=== PATIENT | female | born 1995 | race Caucasian/White ===

== ENCOUNTER 2021-02-22 12:20 | Inpatient (IN) ==
[2021-02-22] MEDS ORDERED: OXYTOCIN 30 UNITS/500 ML BAG IV PRN ×2 (12:39→19:24)
[2021-02-22] MEDS ORDERED: BUTORPHANOL TARTRATE 1 MG/ML VIAL IV ONE (12:42)
[2021-02-22] MEDS ORDERED: PENICILLIN G POTASSIUM 6 MU in DEXTROSE 5% 250 ML IV STA (12:43)
[2021-02-22] MEDS: LACTATED RINGER'S 1,000 ML IV PRN ×2 (12:44→15:28)
[2021-02-22 13:17] LABS: Hematocrit (blood only) 40.7 % (37-47); Hemoglobin 14.9 g/dL (12.0-16.0); Mean Corpuscular Hemoglobin 32.6 pg (25-34); Mean Corpuscular Hgb Conc 36.6 g/dL (32-36); Mean Corpuscular Volume 89.1 fL (80-100); Mean Platelet Volume 10.7 fL (7.4-10.4); Platelet Count 200 K/uL (130-400); RDW Coefficient of Variation 13.2 % (11.5-14.5); RDW Standard Deviation 43.1 fL (36.4-46.3); Red Blood Count 4.57 M/uL (4.2-5.4)
[2021-02-22] MEDS ORDERED: fentaNYL citrate 100 MCG/2 ML VIAL ONE (15:15)
[2021-02-22] MEDS ORDERED: BUPIVACAINE 0.25% 30 ML VIAL ONE (15:15)
[2021-02-22] MEDS ORDERED: SODIUM CHLORIDE 0.9% INJ 10 ML VIAL ONE (15:15)
[2021-02-22] MEDS ORDERED: ePHEDrine sulfate 50 MG/ML AMP ONE (15:15)
[2021-02-22] MEDS ORDERED: fentaNYL 2MCG/ML ROPIVACAINE 1.25MG/ML 100 ML BAG EPI ONE (15:16)
--- NOTE | 2021-02-22 15:17 | History & Physical Report ---
Date of Service February 22, 2021 Assessment & Plan (1) Normal labor: Plan: active labor. category one. Offered arom now to hopefully speed up and let baby descend vs. epidural. Patient got one dose of stadol when initially admitted and 5-6cm. Not a candidate for stadol now. After considering, she would like to proceed with epidural. Understands may not make her completely pain free at this late time of the labor. She feels like she is running out of energy and would prefer to try. Anticipate . Admission and Anticipated Discharge Date Admission Date: February 22, 2021 History of Present Illness Chief Complaint: contractions, labor Primary Care Provider: Sonal Aquino MD late entry secondary to patient care Patient is a 26yowf with iup at40 2/7 weeks who presents to labor and delivery secondary to labor. was seen in the office and noted to be 5/100/-1, intact. GBS positive, hypothyroid. Blood Type O Positive 07/06/20 Antibody Screen NEGATIVE 07/06/20 Hemoglobin 13.8 g/dL (12.0-16.0) 11/29/20 Hematocrit 40.3 % (37-47) 11/29/20 Mean Corpuscular Volume 87.2 fL (80-100) 07/06/20 Platelet Count 225 K/uL (130-400) 07/06/20 Rubella IgG Antibody Immune (Immune) 07/06/20 Rapid Plasma Reagin Nonreactive (Nonreactive) 07/06/20 Hepatitis B Surface Antigen Neg (Neg) 07/06/20 HIV (1&2) Ab and P24 Ag, 4th Gener Neg (Neg) 07/06/20 Glucose 1 Hour 50 gm Load 122 mg/dl (70-130) 11/29/20 OB Optional Labs: Chlamydia trachomatis RNA NOT DETECTED (NOT DETECTED) 07/06/20 Neisseria gonorrhoeae RNA NOT DETECTED (NOT DETECTED) 07/06/20 Thyroid Stimulating Hormone (TSH) 1.200 uIu/ml (0.300-4.500) 12/27/20 declined genetics/cf/sma/afp. Allergies Allergy/AdvReac Type Severity Reaction Status Date / Time No Known Allergies Allergy Verified 02/22/21 12:50 Home Medications Medication Instructions Recorded Confirmed Type levothyroxine 75 mcg capsule 75 mcg PO DAILY 06/27/20 02/22/21 History prenat.vits,tavo,[id number] 1 tab PO DAILY 06/27/20 02/22/21 History breast pump #1 ea 12/11/20 02/22/21 Rx breast pump #1 ea 12/11/20 02/22/21 Rx breast pump #1 ea 12/27/20 02/22/21 Rx Patient History Surgical History [place] teeth extracted Family History Mother Hypertension Dyslipidemia TIA (transient ischemic attack) Father Hypertension Dyslipidemia Social History Smoking Status: Never smoker Hx Alcohol Use: No Hx Substance Use: No Preferred Language: Citizen Of [place] Communication Ability: Effective Ed Physicians Required: No Beliefs That Will Affect Care: None marital status: marital status details: Zeferino [phone]) [phone] Current Living Situation: Spouse Current Living Situation Comment: lives with spouse, 2 dogs, 1 cat, spouse to change litter. current occupational status: employed current occupation: ER nurse @ [employer] Other Information That Helps Us Care for You: No Feels Safe at Home: Yes Safety Concerns: Feels Safe At This Time Assistive Devices: None OB History g1--present [employer] CR[employer] History noncontributory Physical Exam Constitutional: WD/WN, vitals as above Gastrointestinal (Abdomen): soft, gravid, nt Psychiatric: A+Ox3, euthymic affect Genitourinary: cx--8-9/100/-1 toco--q2 min efm--120 with mod variability, accels to 140s, no decels Results & Data ([facility]) Vital Signs (Past 12 Hours) Vital Signs Temp Pulse Resp BP 02/22/21 14:52 36.8 C 64 20 121/77 02/22/21 12:47 65 135/86 02/22/21 12:28 36.7 C 65 20 136/97 Code Status & VTE Plan VTE Prophylaxis Plan VTE Prophylaxis will be ordered: No Coding Level of Care Code None Diagnoses Normal labor O80; Z37.9
[2021-02-22] MEDS ORDERED: ePHEDrine sulfate 50 MG/ML AMP IV PRN (15:20)
[2021-02-22] MEDS ORDERED: diphenhydrAMINE 50 MG/ML VIAL IV PRN (15:20)
[2021-02-22] MEDS ORDERED: NALBUPHINE HCL INJ 10 MG/ML AMP IV PRN (15:20)
[2021-02-22] MEDS ORDERED: ONDANSETRON INJ 2 MG/ML 2 ML VIAL IV PRN (15:20)
[2021-02-22] MEDS ORDERED: NALOXONE HCL 1 MG in SODIUM CHLORIDE 0.9% 1000ML 1,000 ML IV PRN (15:20)
[2021-02-22] MEDS ORDERED: NALOXONE HCL 0.4 MG/1 ML VIAL/CARP IV PRN (15:20)
[2021-02-22] MEDS ORDERED: fentaNYL 2MCG/ML ROPIVACAINE 1.25MG/ML 100 ML BAG EPI PRN (15:20)
--- NOTE | 2021-02-22 15:20 | Anesthesiology Consultation ---
Date of Service February 22, 2021 Assessment & Plan ASA ASA2 Proposed Anesthesia Anesthesia Type: Labor Epidural Risk / Benefits Reviewed With: PT / POA / Parent / Guardian, Accepts Plan and Informed Consent Obtained History Height/Weight Height: 5 ft 3 in Weight: 60.781 kg Allergies Allergy/AdvReac Type Severity Reaction Status Date / Time No Known Allergies Allergy Verified 02/22/21 12:50 Medications Home Medications Medication Instructions Recorded Confirmed Last Taken levothyroxine 75 mcg capsule 75 mcg PO DAILY 06/27/20 02/22/21 02/21/21 06:00 prenat.vits,tavo,ptj-uqmc-rrczp 1 tab PO DAILY 06/27/20 02/22/21 02/21/21 12:00 breast pump #1 ea 12/11/20 02/22/21 Unknown breast pump #1 ea 12/11/20 02/22/21 Unknown breast pump #1 ea 12/27/20 02/22/21 Unknown Active Medications Generic Name Dose Route Start Last Admin Trade Name Freq PRN Reason Stop Dose Admin Lactated Ringer's 1,000 mls @ 125 mls/hr 02/22/21 12:39 02/22/21 14:25 Lr IV 02/24/21 12:38 125 mls/hr .Q8H PRN Infusion L&D Protocol Protocol Exercise / Class Metabolic Activity II 4-5 Yardwork/Stairs/Walk up hill Past Family History Family History Mother Hypertension Dyslipidemia TIA (transient ischemic attack) Father Hypertension Dyslipidemia Past Surgical History Surgical History [place] teeth extracted Past Anesthesia History No Hx of Anesthesia Complications and No Family Hx of Anesthesia Complications History of PONV No Hx of PONV and No Hx of Motion Sickness Social History Smoking Status: Never smoker Hx Alcohol Use: No Hx Substance Use: No Review of Systems denies fever/cough/ colds/ chest pain/ SOB/ SALLIE denies SALLIE Physical Exam Vital Signs Last Vital Signs Temp 36.8 C 02/22/21 14:52 Pulse 64 02/22/21 14:52 Resp 20 02/22/21 14:52 BP 121/77 02/22/21 14:52 ENMT Mouth: no TMJ abnormality and no dentition abnormality Thyromental Distance: > or= 3.5 Finger Breadths Mallampati Class: II Neck neck extension not limited Respiratory normal respiratory effort; no respiratory distress Auscultation: lungs clear to auscultation bilaterally Cardiovascular Rate/Rhythm: regular rate and regular rhythm Neurologic moves all extremities Psychiatric Orientation: alert and oriented x 3 Testing Laboratory Results 02/22/21 12:52
[2021-02-22] MEDS: PENICILLIN G POTASSIUM 3 MU in DEXTROSE 5% 100 ML IV PRN ×2 (15:53→16:52)
--- NOTE | 2021-02-22 18:10 | Labor Progress Brief Note ---
Date of Service February 22, 2021 Subjective comfortable with epidural. just starting to feel some rectal pressure. dose 2 of pcn on board. Assessment & Plan (1) Normal labor: Plan: labor down til constant pressure and then will start pushing. fetus overall category one. anticipate . Admission and Anticipated Discharge Date Admission Date: February 22, 2021 Physical Exam Physical Exam: cx-c/c/+1 arom--clear, bloody show toco--q2-3min efm--120s with mod variability, rare small variable and early. Results & Data ([facility]) Vital Signs (Past 12 Hours) Vital Signs Temp Pulse Resp BP Pulse Ox 02/22/21 18:06 72 92 02/22/21 18:01 65 110/75 100 02/22/21 18:00 20 02/22/21 17:58 63 86 L 02/22/21 17:55 63 100 02/22/21 17:50 62 95 02/22/21 17:49 58 L 85 L 02/22/21 17:46 58 L 116/71 02/22/21 17:45 58 L 100 02/22/21 17:40 66 100 02/22/21 17:35 73 100 02/22/21 17:31 67 124/75 02/22/21 17:30 65 20 100 02/22/21 17:25 72 100 02/22/21 17:20 65 100 02/22/21 17:16 65 112/66 02/22/21 17:15 65 100 02/22/21 17:11 68 100 02/22/21 17:05 76 100 02/22/21 17:02 69 109/63 02/22/21 17:00 70 20 99 02/22/21 16:56 85 92 02/22/21 16:50 74 100 02/22/21 16:46 68 102/61 100 02/22/21 16:42 73 89 L 02/22/21 16:41 68 100 02/22/21 16:36 72 100 02/22/21 16:31 73 100 02/22/21 16:30 78 20 105/59 L 02/22/21 16:28 75 88 L 02/22/21 16:26 70 100 02/22/21 16:25 67 108/59 L 02/22/21 16:21 68 100 02/22/21 16:20 68 107/65 02/22/21 16:16 76 100 02/22/21 16:15 75 115/57 L 02/22/21 16:10 70 18 100 02/22/21 16:09 75 107/58 L 02/22/21 16:06 72 100 02/22/21 16:05 71 108/56 L 02/22/21 16:00 82 20 106/60 100 02/22/21 15:58 91 H 121/75 87 L 02/22/21 15:56 77 121/69 02/22/21 15:55 82 100 02/22/21 15:54 81 115/66 02/22/21 15:52 80 131/78 02/22/21 15:51 95 H 20 92 02/22/21 15:50 83 129/75 02/22/21 15:48 88 124/71 02/22/21 15:46 71 134/82 02/22/21 15:45 73 100 02/22/21 15:44 78 134/81 02/22/21 15:42 82 20 136/87 02/22/21 15:40 70 100 02/22/21 15:35 70 100 02/22/21 15:31 99 H 100 02/22/21 15:26 75 98 02/22/21 15:22 63 117/68 02/22/21 15:21 97 H 100 02/22/21 14:52 36.8 C 64 20 121/77 02/22/21 12:47 65 135/86 02/22/21 12:28 36.7 C 65 20 136/97 Coding Level of Care Code None Diagnoses Normal labor O80; Z37.9
[2021-02-22] MEDS ORDERED: HYDROCORTISONE ACETATE 25 MG SUPP PR PRN (19:24)
[2021-02-22] MEDS ORDERED: bisacodyL 10 MG SUPP PR PRN (19:24)
[2021-02-22] MEDS ORDERED: SUPERCREAM 0.870% 15 GM JAR EXT PRN (19:24)
[2021-02-22] MEDS ORDERED: DIPHTHERIA/TETANUS/PERTUSSIS 0.5 ML SYR/VIAL IM ONE (19:24)
[2021-02-22] MEDS ORDERED: ACETAMINOPHEN 325 MG TAB PO PRN (19:24)
[2021-02-22] MEDS ORDERED: BENZOCAINE 20% AER SPR 82.5 GM CAN EXT PRN (19:24)
[2021-02-22] MEDS ORDERED: oxyCODONE/ACETAMINOPHEN 5mg/325mg TAB PO PRN (19:24)
--- NOTE | 2021-02-22 19:24 | Delivery Summary ---
Vaginal Delivery Summary Date of Service February 22, 2021 Vaginal Delivery Summary and 2nd Degree LAC Pre-operative Diagnosis: at 40 2/7 active labor srom Post-operative Diagnosis: same Procedure: second degree laceration and repair EBL: 300cc Anesthesia: local infiltration of lidocaine to the perineum Procedure: Patient presented from the office in active labor and srom. Patient progressed spontaneously to c/c/0 station. A lip of the cervix was easily reduced. The patient pushed for about 15 min to deliver a viable female in lop position. The nose and mouth were bulb suctioned on the perineum and the rest of the infant was then delivered without difficulty. The baby was vigorous. The nose and mouth were again bulb suctioned and the was placed in the maternal abdomen for drying and attention. Cord was clamped and c ut at one minute of life. Cord blood and segment obtained. Placenta delivered spontaneous, intact with a three vessel cord. Cervix/sulci/rectum were intact. A second degree perineal laceration was repaired in the normal standard fashion. Hemostasis obtained with dilute pitocin and fundal massage. Apgars were 8/9. Mother and baby doing well at the end of the delivery. [facility] [place] Vaginal Delivery Charge Delivery Type Details: and 2nd Degree LAC
--- NOTE | 2021-02-22 21:08 | Delivery Summary ---
Vaginal Delivery Summary Date of Service February 22, 2021 Vaginal Delivery Summary and 1st Degree LAC (right labial) Pre-operative Diagnosis: at 40 2/7 normal labor Post-operative Diagnosis: same Procedure: epidural arom first degree laceration and right labial laceration and repair EBL: 350cc Anesthesia: epidural Procedure: The patient arrived to labor and delivery from the office in active labor. She labored spontaneously and at 8-9cm got an epidural. The patient progressed to c/c/+1 station after laboring down . The patient pushed to deliver a viable female in claudia position. The nose and mouth were bulb suctioned on the perineum, there was a nuchal hand and the rest of the infant was then delivered without difficulty. The baby was vigorous. The nose and mouth were again bulb suctioned and the infant was placed in the maternal abdomen for drying and attention. Cord was clamped and cut at one minute of life. Cord blood and segment obtained. Placenta delivered spontaneous, intact with a three vessel cord. Cervix/sulci/rectum/perineum were intact. A first degree vaginal laceration and right labial laceration were repaired in the normal standard fashion. Hemostasis obtained with dilute pitocin and fundal massage. Apgars were 8/9. Mother and baby doing well at the end of the delivery. [facility] Vaginal Delivery Charge Delivery Type Details: and 1st Degree LAC (right labial)
[2021-02-22] MEDS: DOCUSATE SODIUM 100 MG CAP PO SCH (22:32)
[2021-02-23 06:57] LABS: Hematocrit (blood only) 38.6 % (37-47); Hemoglobin 13.8 g/dL (12.0-16.0)
--- NOTE | 2021-02-23 08:08 | Obstetrical Progress Note ---
Date of Service February 23, 2021 Assessment & Plan (1) Encounter for care and examination after delivery: Plan: 26yo PPD 1 s/p at 40 weeks 2 days complicated by 1st degree laceration -Continue routine care -Vitals reviewed- HDS, afebrile -GBS positive, adequately treated -Encourage ambulation, regular diet -Pain control with ibuprofen, acetaminophen, percocet PRN -Encourage -Hgb 13.8 -discharge likely late tonight versus tomorrow -f/u in 6 weeks with OB after discharge Admission and Anticipated Discharge Date Admission Date: February 22, 2021 Supervising Physician Co-Signing Physician Notes Resident Physician Supervision Note: I interviewed and examined the patient. Discussed with Dr. Boyd and agree with findings and plan as documented in the note. Any exceptions or clarifications are listed here: Doing well. Routine care. First time mom so probable d/c tomorrow. Documented By: Inna Barrios MD, FACOG Subjective Ambulation: yes Voiding: yes Passing Gas: not yet BM: not yet Diet Tolerance: regular Lochia: small Feeding Type: Current Pain Level(1-10): 2 Review of Systems Review of Systems: Denies fevers/chills. Denies dyspnea, cough. Denies chest pain. Denies breast pain or discharge. +mild burn at stitch site when urinating, resolving Denies nausea, vomiting. Physical Exam Physical Exam: General: Alert, oriented, no acute distress Cardiac: Regular rate and rhythm. No murmurs appreciated. Respiratory: Clear to auscultation, symmetric chest rise and fall. No wheezes or crackles. No increased work of breathing or accessory muscle use Abdomen: Soft, nontender. Fundus firm and palpable at 1 cm below umbilicus. No guarding or rebound. Extremities: Warm, dry. No lower extremity edema, erythema or swelling. Results & Data ([facility]) Vital Signs (Past 12 Hours) Vital Signs Temp Pulse Pulse Resp BP BP Pulse Ox 02/23/21 04:20 36.7 C 60 18 108/73 02/23/21 01:04 36.9 C 59 L 18 112/73 02/22/21 23:15 71 18 125/76 02/22/21 23:00 81 120/71 02/22/21 22:45 78 18 116/63 02/22/21 22:30 75 133/82 02/22/21 22:15 18 128/76 02/22/21 22:00 79 18 129/77 02/22/21 21:45 79 18 129/77 02/22/21 21:30 76 18 135/72 02/22/21 21:15 81 18 133/66 02/22/21 21:13 81 18 136/73 02/22/21 21:03 81 136/73 02/22/21 20:55 87 95 02/22/21 20:50 85 93 02/22/21 20:45 85 96 02/22/21 20:40 81 96 02/22/21 20:35 114 H 96 02/22/21 20:30 100 H 96 02/22/21 20:25 87 95 02/22/21 20:20 95 H 95 02/22/21 20:16 81 126/68 02/22/21 20:15 83 18 95 02/22/21 20:10 96 H 95 02/22/21 20:05 95 H 95 Resident Activity Tracking Resident Involvement: Resident Care Provided Care Provided: OB Delivery
[2021-02-23] MEDS: DOCUSATE SODIUM 100 MG CAP PO SCH ×2 (09:10→21:40)
[2021-02-23] MEDS: PRENATAL VITAMIN 1 TAB PO SCH (09:11)
[2021-02-23] MEDS: IBUPROFEN 600 MG TAB PO PRN ×2 (09:11→18:10)
--- NOTE | 2021-02-23 12:06 | Anesthesia Procedure Note ---
Date of Service February 23, 2021 Anesthesia Post Epidural Note Vital Signs Vital Signs: Temp Pulse Resp BP Pulse Ox 98.4 F 68 18 135/84 99 02/23/21 07:55 02/23/21 07:55 02/23/21 07:55 02/23/21 07:55 02/23/21 07:55 Pain Intensity Abdomen: Pain Intensity: 4 Notes Mental Status: alert / awake / arousable and participated in evaluation Nausea / Vomiting: adequately controlled Pain: adequately controlled Airway Patency, RR, SpO2: stable & adequate BP & HR: stable & adequate Hydration State: stable & adequate Neuraxial Anesthesia: was administered and sensory block is resolving Anesthetic Complications: no major complications apparent and Pt Satisfied with anesthetic care Epidural: Removed without complications and With tip intact
[2021-02-23] MEDS ORDERED: bisacodyL 5 MG TABEC PO SCH (20:00)
--- NOTE | 2021-02-24 08:30 | Obstetrical Progress Note ---
Date of Service February 24, 2021 Assessment & Plan (1) Encounter for care and examination after delivery: stable, dc home, f/u 6wk pp check, instructions reviewed. RH pos, RI, breast. Day #:: 2 Subjective Ambulation: ambulating normally Voiding: no voiding problems Diet Tolerance:: regular diet Lochia:: Small Feeding Type:: breast feeding denies pain issues. Constitutional: + as per Subjective / HPI Physical Exam Constitutional WD/WN, vitals as above Respiratory normal respiratory effort, lungs clear to auscultation Cardiovascular Rate/Rhythm: regular rate and regular rhythm Gastrointestinal (Abdomen) Inspection/Auscultation: abdomen normal to inspection Percussion/Palpation: abdomen soft fundus firm 2 cm below umbilicus Musculoskeletal nt calves no edema Neurologic grossly normal Psychiatric A+Ox3, euthymic affect
[2021-02-24] MEDS: IBUPROFEN 600 MG TAB PO PRN (08:57)
[2021-02-24] MEDS: PRENATAL VITAMIN 1 TAB PO SCH (08:57)
[2021-02-24] MEDS: DOCUSATE SODIUM 100 MG CAP PO SCH (08:57)
== END 2021-02-24 12:15 | disposition home or self-care (01) | DRG 807 ==
LOC: OPB 12:20 → 4S1 12:22 → 4S2 02-23 00:01

== ENCOUNTER 2023-03-12 12:25 | Inpatient (IN) ==
--- NOTE | 2023-03-12 13:21 | Emergency Department Note ---
ED Provider Note History of Present Illness Chief Complaint: Headache Stated Complaint: gestational hypertension Time Seen by Provider: 03/12/23 13:20 This is a 28-year-old female with a history of irritable bowel syndrome, hypothyroidism, who presents to the emergency department with a headache that started yesterday, not improving with Tylenol ibuprofen. Patient is 9 days . She was induced at 38 weeks in [place] due to IUGR. She was group B strep positive. Her amniotic fluid ruptured during the first cervical check the induction and she required Pitocin at 3 cm dilation. Delivered vaginally. She required bimanual evacuation due to persistent hemorrhage. Was diagnosed with hypertension during labor. Was subsequently discharged from the hospital, did not require additional intervention because her blood pressure normalized. Saw Brianda Snow REGULATORY COORDINATOR yesterday for blood pressure check and it was in the 140s systolic so they decided to bring her back in 1 week for a recheck. Patient developed a headache yesterday evening located on both sides of her head. Was constant last night, now comes and goes. She does not have any vision changes. Yesterday evening she had some right upper abdominal pain that lasted for about an hour but no nausea or vomiting. That pain has resolved. Patient has had a normal amount of bleeding. She has not had any chest pain, shortness of breath, fever, or chills. Home Medications Medication Instructions Recorded Confirmed Type levothyroxine 75 mcg capsule 75 mcg PO QAM 06/27/20 03/12/23 History prenat.vits,tavo,klc-kcyn-wuogs 1 tab PO DAILY 07/30/22 03/12/23 History breast pump #1 ea 10/23/22 02/25/23 Rx mesalamine 1.2 gram tablet,delayed See Rx Instructions .Route 01/26/23 03/12/23 Rx release .COMPLEX #360 tabs Allergies Allergy/AdvReac Type Severity Reaction Status Date / Time No Known Allergies Allergy Verified 02/25/23 10:53 Past Med/Surg History Medical History Ulcerative colitis History of COVID-19 diagnosed 08/2021--mild symptoms, no symptoms now IBS (irritable bowel syndrome) Hypothyroidism Surgical History History of colonoscopy [place] teeth extracted Family History Mother Dyslipidemia TIA (transient ischemic attack) Hypertension Father Dyslipidemia Hypertension Other No family history of adverse response to anesthesia Social History Smoking Status: Never smoker Second Hand Exposure: No; Do You Dip or Chew Tobacco: No; Tobacco Cessation Education Requested by Patient: No Hx Alcohol Use: No Hx Substance Use: No Preferred Language: Yi Communication Ability: Effective Living Skills Advisor Required: No Beliefs That Will Affect Care: None marital status: marital status details: Zeferino (28) [phone] Current Living Situation: Spouse and Family Current Living Situation Comment: lives with spouse and child, 2 dogs, 1 cat, spouse to change litter. current occupational status: employed current occupation: ER nurse @ [employer] Other Information That Helps Us Care for You: No Feels Safe at Home: Yes Safety Concerns: Feels Safe At This Time Assistive Devices: None Physical Exam Vital Signs Vital Signs - 24 hr 03/12/23 12:51 03/12/23 12:56 03/12/23 14:14 Temperature 97.9 F Temperature Source Temporal Artery Scan Pulse Rate 78 67 Respiratory Rate 20 Respiratory Effort / Characteristics Non-Labored Respiratory Depth Normal Blood Pressure 164/107 H 146/101 H Blood Pressure [Right Arm] 163/110 H Blood Pressure Mean 126 Blood Pressure Mean [Right Arm] 127 Pulse Oximetry 99 Oxygen Delivery Method Room Air Sepsis Recent Fever Within 48 Hours No Sepsis New/Unexplained Change in Mental Status No Sepsis Action Taken by Nursing No Action Required CONSTITUTIONAL: Well developed, well nourished, in no acute distress, pleasant. HEAD: Normocephalic, atraumatic. EYES: PERRL, conjunctivae normal, extraocular muscles intact. NECK: Full active range of motion. RESPIRATORY: Breathing unlabored and symmetric. Lungs clear to auscultation bilaterally. No wheeze, rales, or rhonchi. CARDIOVASCULAR: Regular rate and rhythm. No murmurs, rubs, or gallops. Radial pulses 2+ bilaterally. ABDOMEN: Normal bowel sounds. Soft, nontender, no peritonitis. No masses. No CVA tenderness bilaterally. MUSCULOSKELETAL: Moves all extremities at all joints without pain or difficulty. No cyanosis or edema. SKIN: [place], warm, dry. NEUROLOGIC: Awake, alert, oriented. Gaze is conjugate. Face symmetric, speech normal. Moves head and all four extremities spontaneously. Sensation and strength grossly intact. PSYCHIATRIC: Appropriate. Normal affect Course Administered Medications Magnesium Sulfate (Magnesium Sulfate / Wtr) 40 gm in 1,000 mls @ 50 mls/hr IV .Q20H YRN Stop: 04/11/23 13:59 Last Infusion: 03/12/23 18:59 Dose: 50 mls/hr Documented By: JUAN ANTONIO Co-signed By: LANI Admin: 03/12/23 15:12 Dose: 50 mls/hr Documented By: LAWSON Co-signed By: CHRISTINA Lactated Ringer's (Lr) 1,000 mls @ 125 mls/hr IV .Q8H YRN Stop: 04/11/23 16:59 Last Admin: 03/12/23 17:32 Dose: 75 mls/hr Documented By: JUAN ANTONIO Discontinued Medications Labetalol HCl (Labetalol Hcl Iv 5 Mg/Ml 20ml) 10 mg IV NOW STA Stop: 03/12/23 13:50 Last Admin: 03/12/23 14:20 Dose: Not Given Documented By: YUE Labetalol HCl (Labetalol Hcl Iv 5 Mg/Ml 20ml) 20 mg IV NOW STA Stop: 03/12/23 13:50 Last Admin: 03/12/23 14:14 Dose: 20 mg Documented By: YUE Co-signed By: DHARMSEH Magnesium Sulfate (Mag Sulfate 4gm Bolus From Bag) 4 gm IV ONE ONE Stop: 03/12/23 13:55 Last Admin: 03/12/23 14:35 Dose: 4 mg Documented By: YUE Co-signed By: TASHA Medical Decision Making Differential Diagnosis Preeclampsia, eclampsia, hypertension, thrombocytopenia, migraine headache, tension headache, pulmonary edema, proteinuria, sinus thrombosis, among other pathology Laboratory Data 03/12/23 13:50 03/12/23 13:50 Lab Results 03/12/23 03/12/23 Range/Units 13:45 13:50 WBC 7.36 (4.8-10.8) K/ul RBC 4.58 (4.20-5.40) M/uL Hgb 14.1 (12.0-16.0) g/dl Hct 40.2 (37.0-47.0) % MCV 87.8 (80.0-100.0) fL MCH 30.8 (25.0-34.0) pg MCHC 35.1 (32.0-36.0) g/dL RDW Std Deviation 40.3 (36.4-46.3) fL RDW Coeff of El 12.6 (11.5-14.5) % Plt Count 331 (130-400) K/uL MPV 8.9 L (9.4-12.4) fL Immature Gran % (Auto) 0.4 % Neut % (Auto) 60.5 % Lymph % (Auto) 29.8 % [place] % (Auto) 5.2 % Eos % (Auto) 3.4 % Baso % (Auto) 0.7 % Neut # (Auto) 4.46 (1.40-6.50) K/uL Lymph # (Auto) 2.19 (1.20-3.40) K/uL [place] # (Auto) 0.38 (0.11-0.59) K/uL Eos # (Auto) 0.25 (0.00-0.50) K/uL Baso # (Auto) 0.05 (0.00-0.20) K/uL Immature Gran # (Auto) 0.03 (0.01-0.20) K/uL Sodium 139 (136-145) mmol/L Potassium 3.8 (3.5-5.1) mmol/L Chloride 105 (98-107) mmol/L Carbon Dioxide 26 (21-32) mmol/L Anion Gap 8 (3-11) BUN 8 (6-23) mg/dl Creatinine 0.64 (0.6-1.2) mg/dl Est Cr Clr Drug Dosing 106.3 ml/min Est GFR ( Amer) 138.8 ml/min Est GFR (Non-Af Amer) 119.7 ml/min BUN/Creatinine Ratio 12.5 (10-20) Glucose 82 (70-99(Fasting)) mg/dl Calcium 8.9 (8.6-10.3) mg/dl Total Bilirubin 0.3 (0.2-1.0) mg/dl AST 23 (13-39) U/L ALT 19 (7-52) U/L Alkaline Phosphatase 79 (34-104) U/L Total Protein 7.1 (6.0-8.3) gm/dl Albumin 3.8 (3.4-5.0) gm/dl Globulin 3.3 (2.5-4.0) gm/dl Albumin/Globulin Ratio 1.2 (0.9-2) TSH 1.084 (0.300-4.500) uIu/ml Urine Color Yellow Urine Appearance Clear (Clear) Urine pH 6.5 (4.5-7.5) Ur Specific [place] 1.005 (1.000-1.030) Urine Protein Negative (Negative) Urine Glucose (UA) Negative (Negative) Urine Ketones Negative (Negative) Urine Blood 2+ H (Negative) Urine Nitrite Negative (Negative) Urine Bilirubin Negative (Negative) Urine Urobilinogen Negative (Negative) Ur Leukocyte Esterase Trace H (Negative) Urine WBC (Auto) 1-5 (0-5) /hpf Urine RBC (Auto) 0-4 (0-4) /hpf U Hyaline Cast (Auto) 0 (0-5) /lpf U Epithel Cells (Auto) 10-20 H (0-5) /lpf Urine Bacteria (Auto) Negative (Negative) Imaging Data Attestation: I personally reviewed and interpreted this imaging study as follows: ( I agree with the radiologist's interpretation) Radiologist's Impression: Chest X-Ray 03/12/23 13:23 SINGLE VIEW CHEST CLINICAL HISTORY: Right upper quadrant abdominal pain. 8 days . FINDINGS: An AP, portable, upright chest radiograph is obtained. No prior studies are available for comparison at the time of dictation. The cardiomediastinal silhouette is unremarkable. The lungs and pleural spaces are clear. No pneumothorax is seen. The bony thorax is grossly intact. IMPRESSION: No active disease in the chest. ACT 112: Negative or not required by law. Electronically signed by: Ancelmo Farris M.D. 03/12/2023 1:41 PM MDM Narrative This is a 28-year-old female day 9 presents to the emergency department with a persistent headache that began last evening. Developed hypertension during delivery which resolved. Had a blood pressure check yesterday which was in the 140s systolic. See above for further details. Patient well-appearing in no acute distress. Her blood pressure is repeatedly elevated in the 160/110 range checked multiple times by myself. She is not tachycardic. Remainder of vitals are normal. Her exam is unremarkable. No abdominal tenderness. An IV was inserted and labs and urine were obtained. An order was placed for continuous cardiac monitoring and at time of evaluation demonstrates a sinus rhythm in the 70s Labs: No leukocytosis or anemia. No thrombocytopenia. Electrolytes are normal. Renal function is normal. TSH normal. No proteinuria. Chest x-ray 1 view is negative for acute process While labs and urine were pending, I called and spoke with Dr. Eugene ([employer], [facility]) due to my concern for preeclampsia. She recommended 20 mg labetalol, 4 g magnesium bolus followed by 2 g every hour. She evaluated the patient and will admit her. Blood pressure improved to 146/101 after labetalol. Repeat blood pressure improved again to 136/91. Patient otherwise remained stable and is agreeable with admission. Impression Pre-eclampsia, Discharge Plan Visit Data Chief Complaint: Headache Stated Complaint: gestational hypertension ED Provider: Rosa Maria Brown ED Midlevel Provider: Otilio Pritchard Discharge Problem: Pre-eclampsia, Patient Disposition: Admitted As Inpatient Condition: Fair Discharge Instructions Interventions: ED Discharge Assessment Last Done: 03/12/23 16:57
--- NOTE | 2023-03-12 13:43 | XRay Report ---
SINGLE VIEW CHEST CLINICAL HISTORY: Right upper quadrant abdominal pain. 8 days . FINDINGS: An AP, portable, upright chest radiograph is obtained. No prior studies are available for c omparison at the time of dictation. The cardiomediastinal silhouette is unremarkable. The lungs and p leural spaces are clear. No pneumothorax is seen. The bony thorax is grossly intact. IMPRESSION: No active disease in the chest. ACT 112: Negative or not required by law. Electronically signed by: Ancelmo Farris M.D. 03/12/2023 1:41 PM
[2023-03-12] MEDS ORDERED: LABETALOL HCL IV 5 MG/ML 20ML IV STA ×2 (13:49)
[2023-03-12] MEDS ORDERED: MAG SULFATE 4GM BOLUS FROM BAG IV ONE (13:54)
--- NOTE | 2023-03-12 14:24 | OB/GYN Consultation ---
Date of Consultation March 12, 2023 Assessment & Plan (1) Pre-eclampsia, : 28 yo 9d pp presents w/ pp pre-eclampsia w/ severe features -pt evaluated while in the ER due to severe range BPs. Labs wnl. Discussed meets criteria for dx w/ elevated bps. She was recommended for IV labetalol 20 mg x 1 and received 4mg magnesium bolus sand 2g/hr afterward and brought to L&D. BPs remain normotensive on L&D -plan to be on mag x 24 hr (1430) with green in place. Will see how BPs do afterward. -ample time given to pt and for questions, answered to apparent satisfaction History of Present Illness Reason for Consultation: pre-eclampsia Requesting Physician: Otilio Pritchard History of Present Illness 28 yo approx 9d s/p and IOL for fgr c/b gestational HTN and hemorrhage requriing bimanual massage presented to ER due to known HTN and persistent ENG. Was dx w/ gHTN in labor and seen yesterday for BP check when it was 130/92 and asymptomatic. Last evening she began having ENG that did not resolve w/ tylenol or ibuprofen. She woke up this AM and noted it persisting. She contacted delivery provider and they recommended ER eval. In the ER, notes mild ENG but not as bad. Denies other s/s PET. BPs persistently severe range. Vaginal bleeding has been appropriate, minimal cramping Allergies Allergy/AdvReac Type Severity Reaction Status Date / Time No Known Allergies Allergy Verified 02/25/23 10:53 Home Medications Medication Instructions Recorded Confirmed Type levothyroxine 75 mcg capsule 75 mcg PO QAM 06/27/20 03/12/23 History prenat.vits,tavo,epo-xbjc-hwtgm 1 tab PO DAILY 07/30/22 03/12/23 History breast pump #1 ea 10/23/22 02/25/23 Rx mesalamine 1.2 gram tablet,delayed See Rx Instructions .Route 01/26/23 03/12/23 Rx release .COMPLEX #360 tabs Patient History Medical History (Updated 03/12/23 @ 14:58 by TAD Nolan) Ulcerative colitis History of COVID-19 diagnosed 08/2021--mild symptoms, no symptoms now IBS (irritable bowel syndrome) Hypothyroidism Surgical History History of colonoscopy [place] teeth extracted Family History Mother Dyslipidemia TIA (transient ischemic attack) Hypertension Father Dyslipidemia Hypertension Other No family history of adverse response to anesthesia Social History (Updated 07/30/22 @ 15:10 by Any Langford) Smoking Status: Never smoker Second Hand Exposure: No; Do You Dip or Chew Tobacco: No; Tobacco Cessation Education Requested by Patient: No Hx Alcohol Use: No Hx Substance Use: No Preferred Language: French Communication Ability: Effective Geospatial Scientist Required: No Beliefs That Will Affect Care: None marital status: marital status details: Zeferino (28) [phone] Current Living Situation: Spouse and Family Current Living Situation Comment: lives with spouse and child, 2 dogs, 1 cat, spouse to change litter. current occupational status: employed current occupation: ER nurse @ [employer] Other Information That Helps Us Care for You: No Feels Safe at Home: Yes Safety Concerns: Feels Safe At This Time Assistive Devices: None Physical Exam Respiratory: normal respiratory effort; no respiratory distress and no labored breathing Results & Data Vital Signs (Past 12 Hours) Vital Signs Temp Pulse Resp BP BP Pulse Ox O2 Del Method 03/12/23 14:14 67 146/101 H 03/12/23 12:56 163/110 H 03/12/23 12:51 97.9 F 78 20 164/107 H 99 Room Air Laboratory Results 03/12/23 03/12/23 Range/Units 13:50 13:45 WBC 7.36 (4.8-10.8) K/ul RBC 4.58 (4.20-5.40) M/uL Hgb 14.1 (12.0-16.0) g/dl Hct 40.2 (37.0-47.0) % MCV 87.8 (80.0-100.0) fL MCH 30.8 (25.0-34.0) pg MCHC 35.1 (32.0-36.0) g/dL RDW Std Deviation 40.3 (36.4-46.3) fL RDW Coeff of El 12.6 (11.5-14.5) % Plt Count 331 (130-400) K/uL MPV 8.9 L (9.4-12.4) fL Immature Gran % (Auto) 0.4 % Neut % (Auto) 60.5 % Lymph % (Auto) 29.8 % [place] % (Auto) 5.2 % Eos % (Auto) 3.4 % Baso % (Auto) 0.7 % Neut # (Auto) 4.46 (1.40-6.50) K/uL Lymph # (Auto) 2.19 (1.20-3.40) K/uL [place] # (Auto) 0.38 (0.11-0.59) K/uL Eos # (Auto) 0.25 (0.00-0.50) K/uL Baso # (Auto) 0.05 (0.00-0.20) K/uL Immature Gran # (Auto) 0.03 (0.01-0.20) K/uL Sodium 139 (136-145) mmol/L Potassium 3.8 (3.5-5.1) mmol/L Chloride 105 (98-107) mmol/L Carbon Dioxide 26 (21-32) mmol/L Anion Gap 8 (3-11) BUN 8 (6-23) mg/dl Creatinine 0.64 (0.6-1.2) mg/dl Est Cr Clr Drug Dosing 106.3 ml/min Est GFR ( Amer) 138.8 ml/min Est GFR (Non-Af Amer) 119.7 ml/min BUN/Creatinine Ratio 12.5 (10-20) Glucose 82 (70-99(Fasting)) mg/dl Calcium 8.9 (8.6-10.3) mg/dl Total Bilirubin 0.3 (0.2-1.0) mg/dl AST 23 (13-39) U/L ALT 19 (7-52) U/L Alkaline Phosphatase 79 (34-104) U/L Total Protein 7.1 (6.0-8.3) gm/dl Albumin 3.8 (3.4-5.0) gm/dl Globulin 3.3 (2.5-4.0) gm/dl Albumin/Globulin Ratio 1.2 (0.9-2) TSH 1.084 (0.300-4.500) uIu/ml Urine Color Yellow Urine Appearance Clear (Clear) Urine pH 6.5 (4.5-7.5) Ur Specific [place] 1.005 (1.000-1.030) Urine Protein Negative (Negative) Urine Glucose (UA) Negative (Negative) Urine Ketones Negative (Negative) Urine Blood 2+ H (Negative) Urine Nitrite Negative (Negative) Urine Bilirubin Negative (Negative) Urine Urobilinogen Negative (Negative) Ur Leukocyte Esterase Trace H (Negative) Urine WBC (Auto) 1-5 (0-5) /hpf Urine RBC (Auto) 0-4 (0-4) /hpf U Hyaline Cast (Auto) 0 (0-5) /lpf U Epithel Cells (Auto) 10-20 H (0-5) /lpf Urine Bacteria (Auto) Negative (Negative) PG Care Time/CCT Total # of Minutes Spent Total Time Spent with Patient: Total time spent is greater than 50% in coordination of care (as documented) at patient's floor/unit and/or counseling patient: Coding Level of Care Code None Diagnoses Pre-eclampsia, O14.95
[2023-03-12] MEDS ORDERED: MAGNESIUM SULFATE / WTR 40 GM/1,000 ML BAG IV SCH (14:30)
[2023-03-12 14:46] LABS: Albumin Globulin Ratio 1.2 (0.9-2); Albumin Level 3.8 gm/dl (3.4-5.0); BUN Creatinine Ratio 12.5 (10-20); Bilirubin,Total 0.3 mg/dl (0.2-1.0); Calcium 8.9 mg/dl (8.6-10.3); Creatinine Clr Calc Pharmacy 106.3 ml/min; Est GFR (African American) 138.8 ml/min; Est GFR (Non-African American) 119.7 ml/min; Globulin 3.3 gm/dl (2.5-4.0); Potassium 3.8 mmol/L (3.5-5.1); Total Protein 7.1 gm/dl (6.0-8.3)
[2023-03-12 14:50] LABS: Basophils # (auto) 0.05 K/uL (0.00-0.20); Basophils % (auto) 0.7 %; Eosinophils # (auto) 0.25 K/uL (0.00-0.50); Eosinophils % (auto) 3.4 %; Hematocrit (blood only) 40.2 % (37.0-47.0); Hemoglobin 14.1 g/dl (12.0-16.0); Immature Granulocytes # (auto) 0.03 K/uL (0.01-0.20); Immature Granulocytes % (auto) 0.4 %; Lymphocytes # (auto) 2.19 K/uL (1.20-3.40); Lymphocytes % (auto) 29.8 %; Mean Corpuscular Hemoglobin 30.8 pg (25.0-34.0); Mean Corpuscular Hgb Conc 35.1 g/dL (32.0-36.0); Mean Corpuscular Volume 87.8 fL (80.0-100.0); Mean Platelet Volume 8.9 fL (9.4-12.4); Monocytes # (auto) 0.38 K/uL (0.11-0.59); Monocytes % (auto) 5.2 %; Neutrophils # (auto) 4.46 K/uL (1.40-6.50); Neutrophils % (auto) 60.5 %; Platelet Count 331 K/uL (130-400); RDW Coefficient of Variation 12.6 % (11.5-14.5); RDW Standard Deviation 40.3 fL (36.4-46.3); Red Blood Count 4.58 M/uL (4.20-5.40); White Blood Count 7.36 K/ul (4.8-10.8)
[2023-03-12 14:50] LABS: Appearance Urine Clear (Clear); Bacteria Urine Automated Negative (Negative); Bilirubin Urine Negative (Negative); Blood Urine 2+ (Negative); Cast Urine Automated 0 /lpf (0-5); Color Urine Yellow; Glucose Urine UA Negative (Negative); Ketones Urine Negative (Negative); Leukocyte Esterase Urine Trace (Negative); Nitrite Urine Negative (Negative); Protein Urine Negative (Negative); RBC Urine Automated 0-4 /hpf (0-4); Specific Gravity Urine 1.005 (1.000-1.030); Urobilinogen Urine Negative (Negative); pH Urine 6.5 (4.5-7.5)
[2023-03-12 15:00] LABS: Thyroid Stimulating Hormone 1.084 uIu/ml (0.300-4.500)
[2023-03-12] MEDS: MAGNESIUM SULFATE / WTR 40 GM/1,000 ML BAG IV SCH (15:12)
[2023-03-12] MEDS: LACTATED RINGER'S 1,000 ML IV SCH (17:32)
--- OUTSIDE RECORDS SUMMARY | 2023-03-13 00:14 | External Medical Summary | Continuity of Care Document ---
Author Name Unknown Organization [place] [address] [address] Address [address] [place] [phone] Care Team Providers Care Composing Machine Operator Name Role Phone Sonal Aquino Primary Care Physician [phone] Encounter [facility] [id number] Date(s): 03/03/23 - 03/03/23 [place] [address] [address] [facility] Obstetrics and Gynecology [address] [place] [id number] [phone] Encounter Diagnosis 38 weeks gestation of (Discharge Diagnosis) - 03/02/23 Discharge Disposition: Home or Self Care Attending Physician: MD Taty, Kelsey Zamudio Referring Physician: MD Eugene Samantha L Allergies, Adverse Reactions, Alerts No Known Allergies Medications Colace 100 mg oral capsule Start: 03/05/23 8:44:00 EST, 1 cap, PO, bid Start Date: 03/05/23 Status: Ordered Dermoplast 20% topical spray Start: 03/05/23 8:45:00 EST, 1 appl, topical, As indicated, PRN: discomfort Start Date: 03/05/23 Status: Ordered levothyroxine 75 mcg (0.075 mg) oral capsule Start: 03/03/23 10:23:00 EST Start Date: 03/03/23 Status: Ordered mesalamine extended release Start: 03/03/23 10:22:00 EST Start Date: 03/03/23 Status: Ordered Motrin Start: 03/05/23 8:44:00 EST, 600 mg =, PO, q6h Start Date: 03/05/23 Status: Ordered Non-Formulary MED 03/05/23 8:45:00 EST, Maintenance Start Date: 03/05/23 Status: Ordered Multivitamins Start: 03/03/23 10:14:00 EST Start Date: 03/03/23 Status: Ordered Tucks Start: 03/05/23 8:45:00 EST, 1 appl, topical, As indicated, PRN: see order comments Start Date: 03/05/23 Status: Ordered Tylenol 325 mg oral tablet Start: 03/05/23 8:44:00 EST, 2 tab, PO, q6h Start Date: 03/05/23 Status: Ordered Problem List Condition Confirmation Course Effective Dates Status Health St atus Informant Hypothyroidism Confirmed Active Ulcerative colitis Confirmed Active Diagnosis Diagnosis Type Effective Dates Health Status Cl inical Service Informant 38 weeks gestation of Discharge Diagnosis 03/02/23 Social History Social History Type Response Smoking Status Never smoked cigaret allen Sex Female Patient Care team information Care Team Personnel Name: MD Miles, Sonal Chisholm Position: Referring DIRECT Member Role: Primary Care Provider Address: Address: [address] [place] [address] [place] Care Team Related Persons Name: EVELIN RODRIGUEZ Address: home [address] [place] [phone] Name: ZENOBIA RODRIGUEZ Address: home [address] [place] [phone]
--- OUTSIDE RECORDS SUMMARY | 2023-03-13 00:14 | External Medical Summary | Continuity of Care Document ---
Author Name Unknown Organization [facility] Address [address] [place] [address] [phone] Care Team Providers Care Staff Research Associate Name Role Phone Fredy Aquino Primary Care Physician [phone] [facility]counter [facility] [id number] Date(s): 03/03/23 - 03/05/[address] [id number] [phone] Encounter Diagnosis (Discharge Diagnosis) - 03/03/23 Discharge Disposition: Home or Self Care Attending Physician: Saran Gutierrez MD, Cindy Rangel Admitting Physician: Saran Gutierrez MD, Cindy Rangel Referring Physician: RAISA Poe Megan Allergies, Adverse Reactions, Alerts No Known Allergies Functional Status 03/05/23 Neurological Symptoms None ADLs Independent Facial Symmetry Symmetric Gait Steady Swallowing Difficulty None Level of Consciousness Neuro Alert, Active Hallucinations Present None History of Fall in Last 3 Months Wheeler N o Presence of Secondary Diagnosis Wheeler No Use of Ambulatory Aid Wheeler None/bedrest /nurse assist IV/Heparin Lock Fall Risk Wheeler No Gait/Transferring Fall Risk Wheeler Normal /bedrest/immobile Mental Status Fall Risk Wheeler Oriented t o own ability Wheeler Fall Risk Score 0 Wheeler Fall Risk No Risk Speech Pattern Clear Medications Colace 100 mg oral capsule Start: [...] PO, q6h Start Date: 03/05/23 Status: Ordered Mental Status 03/03/23 Communication Barrier Present No Primary Language Bangladeshi Problem List Condition Confirmation Course Effective Dates Status Health St atus Informant Hypothyroidism Confirmed Active Ulcerative colitis Confirmed Active Diagnosis Diagnosis Type Effective Dates Health Status Clini tavo Service Informant Discharge Diagnosis 03/03/23 Non-Specified Results Laboratory List Name Date Complete Blood Count (CBC w Platelets) 1 05/05/22 Fibrinogen 03/04/23 Partial Thromboplastin Time (PTT) Prothrombin Time w/ INR (PT/INR) 3 Protein/Creatinine Ratio, Urine (Urine P rotein/Creatinine Ratio) 03/03/23 Creatinine Level 03/03/23 ALT Level 03/03/23 AST Level 03/03/23 Glucose Meter (GLUCOSE METER) 03/03/23 Blood Type (ABO/Rh) (ABO/RH) 03/03/23 Blood Type/Antibody Screen ( for possible transfusion) (Type and Screen (for possible transfusion)) 03/03/23 Complete Blood Count (CBC w Platelets) 1 05/04/22 Treponemal Ab Screen 03/03/23 Most recent to oldest [Reference Range]: 1 2 ABO/Rh O POSITIVE (03/03/23 3:52 PM) O POSITIVE (03/03/23 3:40 PM) Antibody Scr NEGATIVE (03/03/23 3:40 PM) Expires at 0600AM on 03/06/2023 (03/03/23 3:40 PM) # Units 2 (03/03/23 3:40 PM) R Number NRQ (03/03/23 3:40 PM) eGFR CKD-EPI [>60 mL/min/1.7 3 m2] >90 mL/min/1.73 m2 (03/03/23 9:05 PM) Estimated CrCl 103.10 mL/min (03/03/23 9:43 PM) Treponemal Ab Screen [NR] NONREACTIVE (03/03/23 3:40 PM) Prot/Cret (u) NOT CALCULATED (03/03/23 9:05 PM) MPV [9.0-12.2 fL] 10.3 fL (03/04/23 5:09 AM) 10.1 fL (03/03/23 3:40 PM) RDW [11.5-14.2 %] 12.9 % (03/04/23 5:09 AM) 13.0 % (03/03/23 3:40 PM) B Comments Second specimen for ABRH confirmation requested from: L (03/03/23 3:40 PM) Component RED CELLS (03/03/23 3:40 PM) Protein (u) ran [<25 mg/dL] <4 mg/dL (03/03/23 9:05 PM) ALT [0-33 unit/L] 16 unit/L (03/03/23 9:05 PM) AST [0-32 unit/L] 26 unit/L (03/03/23 9:05 PM) Cret [0.60-1.00 mg/dL] 0.66 mg/dL (03/03/23 9:05 PM) Fibr [208-435 mg/dL] 402 mg/dL (03/04/23 5:09 AM) Gluc Meter [74-109 mg/dL] 88 mg/dL (03/03/23 8:20 PM) Hct [35-44 %] 37.0 % (03/04/23 5:09 AM) 39.8 % (03/03/23 3:40 PM) Hgb [11.7-15.0 g/dL] 13.1 g/dL (03/04/23 5:09 AM) 14.3 g/dL (03/03/23 3:40 PM) INR [0.9-1.1] 1.0 1 (03/04/23 5:09 AM) MCH [28-33 pg] 30.9 pg (03/04/23 5:09 AM) 30.7 pg (03/03/23 3:40 PM) MCHC [32-36 g/dL] 35.4 g/dL (03/04/23 5:09 AM) 35.9 g/dL (03/03/23 3:40 PM) MCV [81-96 fL] 87.3 fL (03/04/23 5:09 AM) 85.4 fL (03/03/23 3:40 PM) Plts [150-350 K/uL] 161 K/uL (03/04/23 5:09 AM) 185 K/uL (03/03/23 3:40 PM) PT [12.0-14.2 seconds] 12.8 seconds (03/04/23 5:09 AM) PTT [23-35 seconds] 23 seconds (03/04/23 5:09 AM) RBC [3.90-5.00 M/uL] 4.24 M/uL (03/04/23 5:09 AM) 4.66 M/uL (03/03/23 3:40 PM) Creat (u) 18.60 mg/dL 2 (03/03/23 9:05 PM) WBC [4.0-10.4 K/uL] 18.16 K/uL *HI* (03/04/23 5:09 AM) 9.18 K/uL (03/03/23 3:40 PM) 1Result Comment: Suggested therapeutic range for low-intensity Coumadin therapy for venous thromboembolism is INR 2.0-3.0 (ex: atrial fibrillation, history of TIA/stroke). For high risk patients, the suggested therapeutic range is INR 2.5-3.5 (ex: mechanical prosthetic valves). 2Result Comment: Reference Range for Random Urine Not Established. Vital Signs Most recent to oldest [Reference Range]: 1 2 3 Height 160.02 cm (03/03/23 4:24 PM) Patient Weight 59.7 kg (03/03/23 4:24 PM) Body Mass Index 23.31 kg/m2 (03/03/23 4:24 PM) Temperature [36.5-37.9 DegC] 36.5 DegC (03/05/23 1:21 PM) 36.5 DegC (03/05/23 5:00 AM) 36.0 DegC *LOW* (03/04/23 9:24 PM) Heart Rate 55 bpm (03/05/23 1:21 PM) 84 bpm (03/05/23 5:00 AM) 63 bpm (03/04/23 9:24 PM) Respiratory Rate 18 br/min (03/05/23 1:21 PM) 18 br/min (03/05/23 5:00 AM) 16 br/min (03/04/23 9:24 PM) Blood Pressure 123/90mmHg (03/05/23 4:10 PM) 121/88mmHg (03/05/23 1:21 PM) 118/76mmHg (03/05/23 5:00 AM) Mean Blood Pressure 101 mmHg (03/05/23 4:10 PM) 98 mmHg (03/05/23 1:21 PM) 86 mmHg (03/04/23 9:24 PM) Cuff Pulse Pressure 33 mmHg (03/05/23 4:10 PM) 33 mmHg (03/05/23 1:21 PM) 42 mmHg (03/05/23 5:00 AM) BP Location # 1 Left Arm (03/05/23 4:10 PM) Right Arm (03/05/23 1:21 PM) Right Arm (03/05/23 5:00 AM) Social History Social History Type Response Smoking Status Never smoked cigaret allen Sex Female Nikkis H&P * MD Mena, Lisy S: PERFORM MD Mena, Lisy S: PERFORM, SIGN MD Mena, Lisy S: SIGN, VERIFY MD Mena, Lisy S: VERIFY DO Haley, Evida: MODIFY, MODIFY Haley DO, Evida: MODIFY, MODIFY DO Haley, Evida: MODIFY Event Display: Anes H&P Authored Date: [id number] Patient: JUANJOSE RODRIGUEZ Age: 28 years Sex: Female : 1995 Associated Diagnoses: None Author: MD Mena, Lisy Hernandez Preoperative Information Pre-Operative Diagnosis: Gravid Uterus . Anesthiesia Preop Info: No Scheduled Surgeries Found. . History of Present Illness 28 yo, 61kg, at 38 weeks of gestation who presents for induction of labor. She has a PMHx of hypothyroidism and IBS. Current complicated by growth restriction. No h/o asthma, HTNor bleeding disorders, not on any anticoagulation. Anticoagulation: None prescribed Anesthetic History: No issues with anesthesia Prior airways: None on file Access: 20g PIV Pertinent labs: Most Recent Lab Results over the last 24 Hours: CBC: on 03/03/2023 15:40 14.3 9.2 185 39.8 Medical History Anesthesia History: Patient's history: Negative. Health Status Allergies: No active allergies have been recorded.. Medications: Medication List (Selected) Documented Medications Documented Multivitamins: levothyroxine 75 mcg (0.075 mg) oral capsule: mesalamine extended release: . Problem List: All Problems / SNOMED CT 069011464 / Confirmed Ulcerative colitis / SNOMED CT 238424761 / Confirmed Hypothyroidism / SNOMED CT 18917441 / Confirmed Resolved: / SNOMED CT 064804227. Histories Social History: Cigarrette Smoker? Other Tobacco Use: Alcohol: Recreational Drugs: . Physical Examination VS/Measurements: Vital Signs 03/03/2023 18:09 EST Temperature 36.7 DegC Temperature Route Oral Heart Rate 59 bpm Respiratory Rate 18 br/min Systolic Blood Pressure 126 mmHg Diastolic Blood Pressure 91 mmHg BP Location # 1 Right Arm BP Cuff Size Regular Mean Blood Pressure 101 mmHg Cuff Pulse Pressure 35 mmHg . Airway: Mallampati classification: II (soft palate, fauces, uvula visible). Mouth: Within normal limits, Teeth ( Within normal limits ). Respiratory: Lungs are clear to auscultation, Respirations are non-labored. Cardiovascular: Normal rate, Regular rhythm. Anesthesiologist Assessment and Plan Problems: No active cardiac conditions, No previous anesthetic complications, No a/w concerns. Risk of major adverse cardiac event (Revised Cardiac Risk Index): 0 = 0.4%. Disposition: No further testing or evaluation indicated preoperatively, may proceed with procedure as scheduled. ASA Classification: Class II. Anesthetic Plan: Anesthetic technique discussed: General anesthesia, Neuraxial. Induction discussed: Intravenously. Airway plan discussed: Oral endotracheal tube. Risks discussed: Nausea-vomiting, Headache, Sore throat, Dental injury, Eye injury, Allergic reaction, Serious complications, Nerve damage, Aspiration. Informed consent: Signed by patient. Special techniques and precautions discussed: Inadvertent dural puncture, Transfusion of blood or blood products. History, Physical Exam, Assessment and Plan Completed: 03/03/2023 18:17:00, DO De Leon Evida. Electronic Signature on File Electronically Reviewed/Signed by: Lisy San MD Author Signature Dt/Tm:03/04/2023 02:04 AM Department of Anesthesia RSK Consult * PAVAN Douglass Tiffany: PERFORM Event Display: Consult Authored Date: [id number] Name:JUANJOSE RODRIGUEZ Patient Number:[id number] :1995 Date of Service:03/04/2023 Visit information Type of Consult :initial_ Reason for consult: . Pain w/ Latch. Baby SGA and on the hypoglycemia protocol. Date & Time of Delivery: 03/04/23 at 0213 Maternal Age28 years old 2, Parity 2 Delivery Information vaginal Previous experience yes7 months. Latch sore in the beginning. gestational Age: 38.6 Weeks Infant Birthweight: 2580 g Assessment Interventions Age of Weaning Previous : 7 months Intervention: Assist with feeding position, Nipple care, Skin to Skin Infant First Feeding: BF Intrapartum Risk Factors at : Other: IOL, PPH - QBL 1184cc Account Leader Reason for Referral: Maternal questions, Sore nipples Maternal Risk Factors: induced hypertension, Other: UC, hypothyroidism Hardesty Risk Factors: Small for gestational age, Other: hypoglycemia protocol Supplies: Silverette Cup - breast size < C-cup Mother's Stated Concerns: Latch feels "pinchy" Prior Education/Support: Previous experience Assessment Audible Swallowing: Spontaneous and intermittent audible swallowing Breast Comfort, Left: No discomfort Breast Comfort, Right: No discomfort Breast Description, Left: Medium Breast Description, Right: Medium Hold Assistance: Minimal assistance Hold Type: Prone oblique, Laid back Infant Response: Remains latched Latch: Grasps breast, Tongue down, Lips flanged, Rhythmic sucking Length of Time Left: 15 Nipple Comfort, Left: Tender, Mild to moderate discomfort Nipple Comfort, Right: Tender, Mild to moderate discomfort Suck Assessment: Organized, Strong, Comfortable Type of Nipple, Left: Everted Type of Nipple, Right: Everted Monitoring Consult End Time: 03/04/23 09:56:00 Consult Start Time: 03/04/23 09:29:00 Account Leader Care Coordination: Other: Warm Line and Outpatient resources Account Leader Duration of Contact: 27 minute Account Leader Reason for Visit: First visit, Referral by provider Breast Feeding Audible Swallowing: Spontaneous and intermittent audible swallowing Latch: Grasps breast, Tongue down, Lips flanged, Rhythmic sucking Latch Assessment Audible Swallowing LATCH: 2 Spontaneous and intermittent < 24 hours old Comfort LATCH: 2 Soft, tender Hold LATCH: 1 Minimal assistance (Staff holds and mother takes over) Latch LATCH: 2 Grasps breast Tongue down Lips flanged Rhythmic sucking LATCH Score: 9 Type of Nipple LATCH: 2 Everted after stimulation Assessment: State:Quiet alert, cueing/rooting Tone:WNL Face:WNL, Symmetric Skin Color:WNL, Appropriate for ethnicity Head:WNL Output:2 voids Breast pump Acquisition_brand of pump_Spectra S1 and Medela Max Carlos. Both new through insurance. Education Provided: Benefits of breast milk Benefits of skin to skin Natural positioning [employer] Hand expression & kit Colostrum Lactogenesis II Baby sign language- Feeding cues & feeding frequency feeding behaviors days 1-4 of life Signs of an effective feeding White discharge education folder section p. 35 Warm line and outpatient resources Teaching reviewed with mother and she verbalized understanding of both verbal and written instructions. Impression:____ Experienced mother. Planning tobreastfeed this baby as well.She shares that the latch is sore, and she remembers experiencing latch difficulties with her first child. She was receptive to consult and review of education. She was open to 's assistance with repositioning techniques. With mom's permission I helped her un-swaddle baby and placeher skin to skin onher chest. Mom attempted feeding in a laid back natural positionand reported an improvement in comfort during the feeding. Se also shared that she feels like her baby looks more comfortable as well. Baby remained latched throughout consult. Ongoing assistance offered upon request. Recommendation/plan: * Follow up: -While inpt:request assistance/latch check PRN -with after discharge PRN -After discharge, call Warm-line with questions/concerns as needed @ [phone] ([phone]) .D/C Summary * MD Hernandez Fredrick: PERFORM Event Display: .D/C Summary Authored Date: [id number] [facility] For medical concerns, call: . Address: [address] [place] [address] [place] [id number] (MOBILE) :1995 . Date of Admission:03/03/2023 Date of Discharge:03/05/2023 Physician:Saran Gutierrez MD, Cindy Rangel Service:Obstetrics Discharge Disposition: Primary Care Provider/Phone: MD MILES, FREDY Chisholm (BUSINESS) [phone] (FAX BUSINESS) Principal Diagnosis: Other Diagnoses: Major Tests and Procedures: VAGINAL DELIVERY Hospital Course: 28-year-old now G2, P2 who presented to labor and delivery for induction of labor secondary to growth restriction. Patient had known medical history of ulcerative colitis on mesalamine, hypothyroidism on levothyroxine, late transfer of care and a BMI 23. The patient delivered a female newbornand sustained a hemorrhage that received Cytotec, Hemabate, TXA and a bimanual examination with BRANDYN placement. QBL noted to be1.3 L. Preeclampsia labs and UPC within normal limits upon intrapartum diagnosis of gestational hypertension. By day 1in the afternoon,the patient had blood pressures which were within normal limitsand desiredearly discharge. She was discharged in stable fashion. She will require a 1 week blood pressure check Exam on Discharge: Vitals & Measurements: T:36.5C TMIN:36.0C TMAX:36.5C HR:55(Monitored) RR:18 BP:121/88 SpO2:98% GENERAL: NAD Discharge Medications: 1.Multivitamin, ( Multivitamins) . 2.Mesalamine (mesalamine extended release) . 3.Levothyroxine (levothyroxine 75 mcg (0.075 mg) oral capsule) . 4.Acetaminophen (Tylenol 325 mg oral tablet) 650 mg (2 tab) by mouth every 6 hours. 5.Ibuprofen (Motrin) 600 mg (1 tab) by mouth every 6 hours. 6.Glycerin-witch de topical (Tucks) 1 appl topically As indicated, as needed for see order comments. 7.Docusate (Colace 100 mg oral capsule) 100 mg (1 cap) by mouth 2 times daily. 8.NonFormulary MED (Non-Formulary MED) . 9.Benzocaine topical (Dermoplast 20% topical spray) 1 appl topically As indicated, as needed for discomfort. Allergies and Sensitivities: NKA Tests Pending: None Scheduled Appointments: Date/Time:Provider/Resource: Mar 01:15 Delta LEDEZMA Nurse Location/Instructions:[facility], [address] [place] [id number] Date/Time:Provider/Resource: Apr 03:05 RAISA Fair Megan Location/Instructions:[facility], [address] [place] [id number] Discharge Services: No Post-Acute Placement(s) Listed No Post-Acute Service(s) Listed Care Instructions: Medications -Alternate acetaminophen and ibuprofen for pain -See page 7 in New Beginning booklet for ways to manage pain -Stool softeners such as docusate or a mild laxative such as polyethylene glycol may be takenfor constipation -Please see discharge instructions for other medications you may have been prescribed Breast care -See pages 32-43 in New Beginnings for information about -Wear breast pads until your breast stop leaking -Avoid heat or hot water on your breasts as this may increase swelling -If you continue to have discomfort -Lay on your back to elevate your breasts -Apply ice packs of crushed ice or bag of frozen vegetables that will mold to your breast with a cloth between the ice pack and your breasts for 10-15 minutes at a time. -Allow your nipples to air dry after feeding to prevent sore nipples -If you are not breast feeding -Fullness may occur several days after delivery but will gradually resolve -Do not massage your breasts as this will stimulate production of milk -Wear a tight bra that provides good support -Do not let hot water run over your breasts in the shower as this will stimulate production of milk. Perineal care -See page 7 in New Beginning booklet -If you had stitches, they will dissolve on their own -Sitz baths (shallow bath) with warm or cool water, whichever provides more comfort to you -Witch De wipes and benzocaine topical spray for discomfort Bathing -You may shower -Do not take tub baths for 6 weeks -No swimming Bleeding -See page 5 in New Beginning booklet -It is common to experience a brief (few hours) increase in vaginal bleeding around 10-14 days following delivery, but this should decrease again -Your menstrual period may occur as early as 6 weeks to 2 months after your delivery Family Planning -It is possible to get even if you have not had your period yet. -Breast feeding is not a reliable way to prevent since some women still ovulate while . -Unless contraception is started at the time of your discharge, it will be discussed at your check-up appointment Blues/ Depression -Please see page 11 and 12 in New Beginning booklet for information and warning signs. - depression is very common. Check up -You will be scheduled for a 6 week visit -You may be scheduled for an earlier visit depending on your physicians recommendations . Advance Directive:None I personally spent _ minutes in discharge planning. Electronic Signature on File Electronically Reviewed/Signed by: Bebeto Hernandez MD Author Signature Dt/Tm:03/05/2023 04:42 PM Resident Division of Women's Health Electronically Reviewed/Signed by: Kelsey Posey MD Cosigner Signature Dt/Tm: 03/05/2023 04:55 PM Division of Maternal Medicine FT Discharge instructions * MD David, Bebeto: PERFORM Event Display: Patient Discharge Instructions Authored Date: [id number] JUANJOSE RODRIGUEZ :1995 Visit Date:03/03/2023 Patient Discharge Instructions [facility] For medical concerns, call: . Date of Admission:03/03/2023 Date of Discharge:03/05/2023 Physician:Saran Gutierrez MD, Maria Antoinette Service:Obstetrics Discharge Disposition: . Advance Directive:None Reason for Hospitalization Your Diagnoses My Health Patient Portal: [facility] makes it easy for you to manage your health information online. My [facility] is a free service that provides you instant, secure access to your medical information anytime, anywhere. Sign in or set up your account today at [email or web address] Thank you for allowing us to assist you with your healthcare needs. If you need additional community resources, [employer] can help at https://www.fitz211.org. 211 can assist you in connecting with social programs based on your unique needs and locations. 211 is an anonymous search that can help you locate resources for: Food, Housing, Transportation, Goods, Education and Healthcare. Medications What How Much When Instructions Next Dose New acetaminophen (Tylenol 325 mg oral tablet) 2 tab(s) by mouth Every 6 hours New benzocaine topical (Dermoplast 20% topical spray) 1 lino topically As indicated as needed for discomfort New docusate (Colace 100 mg oral capsule) 1 cap by mouth 2 times daily New glycerin-witch de topical (Tucks) 1 lino topically As indicated as needed for see order comments New ibuprofen (Motrin) 600 Milligram by mouth Every 6 hours New NonFormulary MED (Non-Formulary MED) Unchanged levothyroxine (levothyroxine 75 mcg (0.075 mg) oral capsule) Unchanged mesalamine (mesalamine extended release) Unchanged multivitamin, ( Multivitamins) Allergies NKA What to do next Instructions From Your Doctor Medications -Alternate acetaminophen and ibuprofen for pain -See page 7 in New Beginning booklet for ways to manage pain -Stool softeners such as docusate or a mild laxative such as polyethylene glycol may be takenfor constipation -Please see discharge instructions for other medications you may have been prescribed Breast care -See pages 32-43 in New Beginnings for information about -Wear breast pads until your breast stop leaking -Avoid heat or hot water on your breasts as this may increase swelling -If you continue to have discomfort -Lay on your back to elevate your breasts -Apply ice packs of crushed ice or bag of frozen vegetables that will mold to your breast with a cloth between the ice pack and your breasts for 10-15 minutes at a time. -Allow your nipples to air dry after feeding to prevent sore nipples -If you are not breast feeding -Fullness may occur several days after delivery but will gradually resolve -Do not massage your breasts as this will stimulate production of milk -Wear a tight bra that provides good support -Do not let hot water run over your breasts in the shower as this will stimulate production of milk. Perineal care -See page 7 in New Beginning booklet -If you had stitches, they will dissolve on their own -Sitz baths (shallow bath) with warm or cool water, whichever provides more comfort to you -Witch De wipes and benzocaine topical spray for discomfort Bathing -You may shower -Do not take tub baths for 6 weeks -No swimming Bleeding -See page 5 in New Beginning booklet -It is common to experience a brief (few hours) increase in vaginal bleeding around 10-14 days following delivery, but this should decrease again -Your menstrual period may occur as early as 6 weeks to 2 months after your delivery Family Planning -It is possible to get even if you have not had your period yet. -Breast feeding is not a reliable way to prevent since some women still ovulate while . -Unless contraception is started at the time of your discharge, it will be discussed at your check-up appointment Blues/ Depression -Please see page 11 and 12 in New Beginning booklet for information and warning signs. - depression is very common. Check up -You will be scheduled for a 6 week visit -You may be scheduled for an earlier visit depending on your physicians recommendations If you notice the following symptoms Please see page 14 in New Beginning booklet and the Post- Warning Signs paper If you have any concerns, call your OB office [address] [phone] [place] [phone] [facility] [phone] Contact our Careline at . If unable to contact your physician and you feel it is an emergency, go to the nearest Emergency Room or call [phone] Diet Instructions RESUME REGULAR DIET -Eat a high fiber diet (fruits, vegetables, bran, beans) to keep your bowel movements regular -Eat high fiber, protein, and calcium rich foods (see page 10 in New Beginning booklet) -Drink plenty of liquids, especially water. -If you are breast feeding maintain a full regular diet. Continue taking your vitamins daily until you run out. Then take a daily multivitamin until you are done breast feeding. Activity Instructions ACTIVITY TOLERATED, NO RESTRICTIONS -Nothing in the vagina for 6 weeks - no douching, no tampons, no sex -See page 9 in New Beginning booklet regarding Resuming Sex -Gradually increase your activity as tolerated -It is okay to walk around and climb stairs -Rest frequently -No heavy lifting (greater than 10-20lb), pushing, or pulling for the first 2-4 weeks -You may begin the Kegel exercises after 2 weeks. Do not start any other exercise program until you have had your checkup. Follow-Up Appointments Scheduled Follow-Up Appointments Date/Time:Provider/Resource: Mar 01:15 Delta LEDEZMA Nurse Location/Instructions:[facility], [address] [facility] [place] [id number] Date/Time:Provider/Resource: Apr 03:05 RAISA Fair Megan Location/Instructions:[facility] - Specialties, [address] [facility] [place] [address] The Following Services Have Been Arranged for You No Post-Acute Placement(s) Listed No Post-Acute Service(s) Listed Tests Pending None Special Instructions Common Emergency Awareness Tips Call 911 immediately if: experiencing any of the warning signs and symptoms of stroke: B.E. F.A.S.T. Balance: is there trouble with walking or coordination Eyes: is there double vision or visual loss Face: Smile, do both sides of face move equally Arm: Raise arms, do both arms move equally Speech: Is speech slurred or inappropriate Time: Time is critical, call 911 immediately Heart Attack Signs Chest discomfort: Most heart attacks involve discomfort in the center of the chest and lasts more than a few minutes, or goes away and comes back. It can feel like uncomfortable pressure, squeezing, fullness or pain. Discomfort in upper body: Symptoms can include pain or discomfort in one or both arms, back, neck, jaw or stomach. Shortness of breath: With or without discomfort. Other signs: Breaking out in a cold sweat, nausea, or lightheaded. Remember, MINUTES DO MATTER. If you experience any of these heart attack warning signs, call to get immediate medical attention! Labor and delivery records * MD Anastasiia, Karis: MODIFY, PERFORM Saran Gutierrez MD, Cindy Rangel: MODIFY Event Display: OB Delivery Note Authored Date: [id number] Delivery Provider Cindy Noonan MD Engagement Engineer Karis Laurent MD Preoperative Diagnosis IOL @ 38.5 weeks for FGR Gestational HTN BMI 23 Postoperative Diagnosis IOL @ 38.5 weeks for FGR Gestational HTN BMI 23 Procedure Baby A - Delivery Type: Vaginal Anesthesia No qualifying data available. Indications for Procedure Baby A - Labor Onset Methods: Medically indicated induction Findings Baby A - Placenta Delivery Method: Expressed Baby A - Placenta Description: Intact Episiotomy/Laceration Vaginal Delivery Laceration Location: Labial Vaginal Delivery Laceration Repair: Yes Laceration Repair as Separate Procedure?: No Vaginal Delivery Repair Anesthetic: Injectable local anesthetic Blood Loss No qualifying data available. Specimen(s) Baby A - Placenta to Pathology: Yes Complications Baby A - Maternal Delivery Complications: None Technique Indications:28 [id number] @38.5 weeks gestation who presented to our service forIOL for FGR. Laborcourse was started with AROM at time of foleyplacement. Fry removed and pitocin was started.During her labor, she ruled in for gHTN.PET labs were wnl. Patient progressed to complete dilation and effacement and pushed until head emerged OA, then restituted toROA position.Body and shoulder delivered without difficulty. Delayed cord clampingwas performed for 60 seconds. Cord was then doubly clamped and cut. was delivered to maternal abdomen and awaiting nursing staff. Placentaexpressed intact with 3 vessel cord.IV oxytocinwas administered.Inspection of the perineum revealed aleft labiallaceration that was repaired with3-0Vicryl in a running, lockedfashion under local anesthesia.The rectum, sulci, and cervix appeared without laceration.Increased uterine bleeding was noted. A bimanual exam was performed with moderate clot expressed. Cytotec and hemabate were given. Bleeding improved. The fundus was noted to be firmbelow the level ofthe umbilicus.There were no sponges remaining in the vaginaat the termination of the procedure and counts were correct.Both the mother and infant were stable in the immediate period. Dr. Noonan was present throughout the procedure. Karis Laurent, PGY1 Attending Attestation I was scrubbed and actively participated in the entire procedure and I agree with above. Cindy Gutierrez MD Nursing Delivery Documentation Baby A - Amniotic Fluid Color/Description: Clear Baby A - Induction Methods: Artificial rupture of membranes, Oxytocin infusion Baby A - Membrane Status: Artificial rupture Baby A - ROM Date, Time: 03/03/23 17:00:00 Complete Cervical Dilation Date/Time: 03/04/23 02:08:00 Electronic Signature on File Electronically Reviewed/Signed by: Karis Laurent MD Author Signature Dt/Tm:03/04/2023 03:15 AM Resident Division of Women's Health Electronically Reviewed/Signed by: Cindy Gutierrez MD Cosigner Signature Dt/Tm: 03/04/2023 06:00 AM Division of Women's Health Patient Care team information Care Team Personnel Name: MD Miles, Fredy Chisholm Position: Referring DIRECT Member Role: Primary Care Provider Address: Address: [address] [place] [address] Name: PAVAN Baker Taylor Position: RN - Surgical WH Member Role: Direct Care Nurse Care Team Related Persons Name: JAVID RODRIGUEZ Address: home [address] [facility] [place] [phone] Name: ZENOBIA RODRIGUEZ Address: home [address] [facility] [id number]
--- OUTSIDE RECORDS SUMMARY | 2023-03-13 00:14 | External Medical Summary | Continuity of Care Document ---
Author Name Unknown Organization [facility] [address] [facility] [address] [address] Address [address] [place] [id number] Care Team Providers Care Mattress Stuffer Name Role Phone Miles Sonal Chisholm Primary Care Physician [phone] [facility]counter [facility] [id number] Date(s): 03/03/23 - 03/03/23 [facility] [address] [place] [address] [facility] Specialties [address] [facility], [address] [place] [address] [phone] Encounter Diagnosis 38 weeks gestation of (Discharge Diagnosis) - 03/03/23 Discharge Disposition: Home or Self Care Attending Physician: MD Taty, Serele H Allergies, Adverse Reactions, Alerts No Known Allergies Assessment and Plan Extracted from: Title:M Extended Office Vi sit with Testing Author:RAISA Poe Megan Date:03/03/23 28 yo 1) Growth Restriction -EFW 4th%ile see above -2x weekly testing until delivered, completed today see above 2) 38 weeks5 days last PAP 04/08/21 care: O pos/ Antibody Screen Neg 08/06/22 GBS Pos [see outside records] Delivery Plan: e-message for IOL sent; pt prefers today if at all possible, aware per prior counseling delivery recommendation is between 38 wks and 39 6/7 see MFM consult/emessages. We reviewed that if EFW is between 3-10% and normal UADs that she would be considered a candidate for induction any time between 38w0d and 39w6d depending on the L&D scheduling availability. [2] Care Planning: Breast feeding desired/[facility]/Condoms-Family Planning for contraception-discussed immediate PP LARC-not interested at this time. RTO for testing 2 x weekly until delivered, PRN any needs, weekly PNV until delivered, and 6 weeks [she does desire to complete pp visit with MFM] Medications Colace 100 mg oral capsule Start: [...] Informant 38 weeks gestation of Discharge Diagnosis 03/03/23 Non-Specified Vital Signs Most recent to oldest [Reference Range]: 1 Patient Weight 61 kg (03/03/23 10:16 AM) Heart Rate 55 bpm (03/03/23 10:16 AM) Respiratory Rate 18 br/min (03/03/23 10:16 AM) Blood Pressure 125/87mmHg (03/03/23 10:16 AM) Social History Social History Type Response Smoking Status Never smoked cigaret lalen Sex Female Obstetrics H&P * MD Monahan Kara: PERFORM MD Monahan Kara: PERFORM, MODIFY MD Monahan Kara: MODIFY, MODIFY Saran Gutierrez MD, Cindy Rangel: MODIFY Event Display: Obstetrics H&P Authored Date: Name:JUANJOSE RODRIGUEZ Patient Number:[id number] :1995 Date of Service:03/03/2023 Reason for Visit OB IOL for FGR History of Present Illness Juanjose is a 28-year-old at38 weeks and 5 days gestation by LMP (06/05/2022)with an MAYO of 03/12/2022 admitted to labor and delivery forinduction of labor 04/10 to IUGR. Feels well today. Expecting babygirl "Browns."At this time, the patient denies headaches, vision changes, shortness of breath, chest pain, persistentRUQ pain,calf pain, orworsening swelling and pain in her lower extremities. Complications -FGR dx 01/26 at outside facility (EFW 4th%ile on [facility] US at our facility on 03/03) -Hypothyroidism on levothyroxine 75 mcg daily, most recent TSH 1.74 on 01/19/2023 -IBS(on mesalamine?) Care: provided by [facility] since anzeuwloalhmj75 weeks gestation ([facility]DA from [facility], desired delivery at a tertiary care center in the setting of IUGR) OB Review of Systems: Contractions: No Movement: Yes Leakage of fluid: No Vaginal bleeding: No Labs: Blood Type: O+, antibody - Hgb: 13.7 Rubella: _immune Treponema Ab: _NR HBsAg: _NR HepC Ab: _NR HIV (1st trimester): _NR GC/Chlam (1st trimester): _negative Urine Culture: GTT:elevated at 140(1 hour), unsure if repeat was conducted GBS: positive US: 03/03/2023 EVALUATION: Num Of Fetuses: 1 Heart Rate(bpm): 115 Cardiac Activity: Present Presentation: Cephalic Placenta: Anterior, no previa P. Cord Insertion: Eccentric, not marginal Amniotic Fluid STEFFEN FV: Within normal limits Largest Pocket(cm) 4.5 Est. FW: 2647 gm 5 lb 13 oz 4.4 % GDM History None OB History History(1,0,0,1) # 1 Baby 1 Outcome Date:02/22/2021Outcome or Result:Vaginal Gest Age:40 weeks Outcome:Live Sex:FemaleWt:2665 g Anesthesia Type:Epidural CAR SALESMAN History No qualifying data available. Review of Systems Negative with the exception of the pertinent positives as listed above. Physical Exam Vitals & Measurements HR:55(Monitored) RR:18 BP:125/87 WT:61.000kg(Dosing) WT:61kg General: Patient alert and oriented in no acute distress Pulmonary: Unlabored respiratory effort Abdomen: Gravid uterus, no fundal tenderness, fetus appears vertex. Right upper quadrant nontender Musculoskeletal: No lower extremity edema Genitourinary: no pooling, no vaginal bleeding, no visible lesions Cervical exam:/-2 EFM: baseline 130s, moderate variability, accels present, no decels TOCO: no ctx Labor Details Baby A - FHR Baseline: 120 bpm Baby A - FHR Baseline Variability: Moderate variability Baby A - FHR Accelerations: Present Baby A - FHR Acceleration Description: 15 x 15 Baby A - FHR Deceleration: None Uterine Contraction Monitoring Method: External toco Baby A - Activity: Present per patient Baby A - FHR Baseline Description: Normal, 110-160 bpm Uterine Activity: Normal Assessment/Plan 38 weeks gestation of This is a28 yo at 38.5 w here for induction of labor 2/2 to IUGR. 1. Admit to labor and delivery 2. Routine labs (CBC, type and screen); will also gettreponemal Ab 3. Labor: Fry 4. GBS + 5. tracing: Category I 6. Indications, risks, and alternatives to section were discussed. Risks discussed included anesthesia, infection, excessive bleeding, injury to adjacent structures (including bowel, bladder, and ureter), injury to , risk for uterine rupture in future pregnancies. Potential need mark-saving hysterectomy and/or blood transfusion was discussed. Should section not be performed, there will be risk for injury or to fetus and/or mother. Patient was given opportunityto ask questions which were answered to their satisfaction. She verbalized understanding of the risks, benefits, alternatives. The patient was discussed with Dr. Noonan, the attending on record, who agrees with the above assessment and plan. Stephanie Weaver MD PGY1 Attending Attestation Agree with above without exception Cindy Gutierrez MD LMP/EGA/MAOY Gestational Age (EGA) and MAYO * Note: EGA calculated as of 03/03/2023 MAYO:03/12/2023EGA*:38 weeks 5 days Type:AuthoritativeMethod Date:06/05/2022 Method:Last Menstrual Period(06/05/2022) Confirmation:Confirmed Description:-- Comments:-- Entered by:PAVAN Sheikh Jacqueline on 02/27/2023 Other MAYO Calculations for this : No additional MAYO calculations have been recorded for this Problem List/Past Medical History Ongoing Historical Medications Home levothyroxine(levothyroxine 75 mcg (0.075 mg) oral capsule) mesalamine(mesalamine extended release) multivitamin, ( Multivitamins) Steroids No qualifying data available. Lab Results No qualifying data available. Electronic Signature on File Electronically Reviewed/Signed by: Wendy Monahan MD Author Signature Dt/Tm:03/03/2023 05:58 PM Resident Department of Family Medicine Electronically Reviewed/Signed by: Stephanie Weaver MD Cosigner Signature Dt/Tm: 03/03/2023 05:14 PM Resident Division of Women's Health Electronically Reviewed/Signed by: Cindy Gutierrez MD Cosigner Signature Dt/Tm: 03/03/2023 07:47 PM Division of Women's Health KR Obstetrics Outpt Note * RAISA Poe Megan: PERFORM, MODIFY, MODIFY, MODIFY Event Display: Obstetrics Outpt Note Authored Date: [id number] Chief Complaint MFM Return OB Visit History of Present Illness Juanjose is here for follow up MFM visit s/p MFM consult. Today's visit is following a growth ultrasound with indications for IOL. Juanjose would like to have this scheduled as soon as possible. She isstaying local with family and is available. We reviewedtoday's ultrasound, testing, pp decisions, and plan to move toward delivery with testing 2 x weekly until delivered. Juanjose was given the 29/09 call numbers and strict call parameters. OB Review of Systems Vaginal Bleeding: [No] Contractions: [No] Leaking Fluid: [No] Movement: [Yes] Headache: [No] Chest pain: [No] Shortness of breath: [No] RUQ pain: [No] Vision changes: [No] Complications FGR dx 01/26 at outside facility Hypothyroid IBS Visit Baby A Activity:Present per patient Vital Signs/Measurements Systolic Blood Cahmdhiq396 mmHg Diastolic Blood Mjvaxpdl98 mmHg Patient Cxbgen86 kg OB History History(1,0,0,1) # 1 Baby 1 Outcome Date:02/22/2021Outcome or Result:Vaginal Gest Age:40 weeks Outcome:Live Sex:FemaleWt:2665 g Anesthesia Type:Epidural Physical Exam Vitals & Measurements HR:55(Monitored) RR:18 BP:125/87 WT:61.000kg(Dosing) WT:61kg General Appearance: calm demeanor, no distress Abdomen: gravid, soft, nontender,FH:agrees with dates; Pulm: unlabored respirations Extremities:No BLE edemaor calve tenderness Testing Testing Patient Care: PO Hydration Testing Type: Non-Stress test Baby A - FHR Baseline: 120 bpm Baby A - NST End Time: 03/03/23 10:28:00 Baby A - NST Start Time: 03/03/23 10:08:00 Baby A - NST Total Time: 20 minute Indications for Testing: Other: FGR Ordered Frequency for Testin times per week Reading Provider: RAISA Poe Megan Testing Results/Interpretation Baby A NST Non-Stress Test Interpretation:Reactive Images EVALUATION: Num Of Fetuses: 1 Heart Rate(bpm): 115 Cardiac Activity: Present Presentation: Cephalic Placenta: Anterior, no previa P. Cord Insertion: Eccentric, not marginal Amniotic Fluid STEFFEN FV: Within normal limits Largest Pocket(cm) 4.5 --------- BIOMETRY: --------- BPD: 87.4 mm G. Age: 35w 2d 4.3 % CI: 79.28 % 70 - 86 FL/HC: 21.6 % 20.6 - 23.4 HC: 310.3 mm G. Age: 34w 5d < 1 % HC/AC: 0.97 0.87 - 1.06 AC: 319.5 mm G. Age: 35w 6d 6 % FL/BPD: 76.7 % 71 - 87 FL: 67 mm G. Age: 34w 3d < 1 % FL/AC: 21.0 % 20 - 24 HUM: 57.1 mm G. Age: 33w 1d < 5 % NB: 12.7 mm 71 % Est. FW: 2647 gm 5 lb 13 oz 4.4 % GESTATIONAL AGE: Clinical MAYO: 38w 5d MAYO: 03/12/23 U/S Today: 35w 1d MAYO: 04/06/23 Best: 38w 5d Det. By: Clinical MAYO MAYO: 03/12/23 TARGETED ANATOMY: Central Nervous System Calvarium/Cranial V.: Appears WNL Cereb./Vermis: NOT well seen Intracranial Kay: Appears WNL Cisterna Magna: NOT well seen Cavum: NOT well seen Midline Falx: Appears WNL Parenchyma: Appears WNL 3rd Ventricle: NOT well seen Lateral Ventricles: Appears WNL 4th Ventricle: NOT well seen Choroid Plexus: Appears WNL Spine Cervical: Against uterine w Lumbar: Against uterine w Thoracic: Against uterine w Shape/Curvature: Appears WNL Head/Neck Face: NOT well seen Profile: Appears WNL Lips: NOT well seen Orbits/Eyes: AppearsWNL Neck: NOT well seen Mandible: NOT well seen Nasal Bone: present Maxilla: NOT well seen Palate: NOT well seen Thorax Thoracic Contour: Appears WNL Ductal Arch: NOT well seen Lungs: Appear WNL SVC: NOTwell seen 4 Chamber View: Appears WNL Interventr. Septum: Appears WNL Cardiac Activity: Appears WNL Cardiac Burtrum: Lt chest 45 degree Cardiac Rhythm: Appears WNL Diaphragm: Appears WNL Cardiac Situs: Appears WNL 3 Vessel View: Appears WNL Rt Outflow Tract: Appears WNL 3 V Trachea View: NOT well seen Lt Outflow Tract: Appears WNL IVC: NOT wellseen Aortic Arch: Appears WNL Crossing: Appears WNL Abdomen Ventral Wall: NOT well seen Lt Kidney: Appears WNL Situs: Appears WNL Rt Kidney: Appears WNL Stomach: Normal, on left side Bladder: Appears WNL Liver: Appears WNL Bowel: Normal echogenicity Extremities Lt Humerus: Appears WNL Lt Femur: Appears WNL Rt Humerus: NOT well seen Rt Femur: Appears WNL Lt Forearm: WNL, 2 long bones Lt Lower Le bones, angle WNL Rt Forearm: WNL, 2 long bones Rt Lower Le bones noted Lt Hand: NOT well seen Lt Foot: AppearsWNL Rt Hand: NOT well seen Rt Foot: AppearsWNL Other Umbilical Cord: 3-vessel cord Genitalia: Appears WNL Masses: None visualized Comment: Renal arteries visualized. DOPPLER - VESSELS: Umbilical Artery S/D %tile RI PI PSV (cm/s) 2.7 78 0.63 1.06 52.7 CERVIX UTERUS ADNEXA: Cervix Poorly seen due to late gestational age IMPRESSION: Single live intrauterine with cardiac activity demonstrated. Viable fetus as described. FGR seen. FHR 115bpm. Normal amniotic fluid volume. Umbilical artery Doppler indices are in the normal range for this gestational age. Recommend NST to be done at [facility] after scan. Recommend delivery. I burt Poe who is seeing pt at [facility]. [1] Assessment/Plan 28 yo 1) Growth Restriction -EFW 4th%ile see above -2x weekly testing until delivered, completed today see above 2) 38 weeks5 days last PAP 04/08/21 care: O pos/ Antibody Screen Neg 08/06/22 GBS Pos [see outside records] Delivery Plan: e-message for IOL sent; pt prefers today if at all possible, aware per prior counseling delivery recommendation is between 38 wks and 39 6/7 see MFM consult/emessages. We reviewed that if EFW is between 3-10% and normal UADs that she would be considered a candidate for induction any time between 38w0d and 39w6d depending on the L&D scheduling availability. [2] Care Planning: Breast feeding desired/[facility]/Condoms-Family Planning for contraception-discussedimmediate PP LARC-not interested at this time. RTO for testing 2 x weekly until delivered, PRN any needs, weekly PNV until delivered,and 6 weeks [she does desire to complete pp visit with MFM] LMP/EGA/MAYO Gestational Age (EGA) and MAYO * Note: EGA calculated as of 03/03/2023 MAYO:03/12/2023EGA*:38 weeks 5 days Type:AuthoritativeMethod Date:06/05/2022 Method:Last Menstrual Period(06/05/2022) Confirmation:Confirmed Description:-- Comments:-- Entered by:PAVAN Sheikh Jacqueline on 02/27/2023 Other MAYO Calculations for this : No additional MAYO calculations have been recorded for this Problem List/Past Medical History Ongoing Historical Medications levothyroxine(levothyroxine 75 mcg (0.075 mg) oral capsule) mesalamine(mesalamine extended release) multivitamin, ( Multivitamins) Immunizations Declined Tdap outside facility Received Influenza Dec 2022 Unvaccinated from COVID, hx COVID outside of Lab Results No qualifying data available. [1]MFM Ultrasound; MD Taty, Kelsey Zamudio 03/03/2023 09:44 EST [2]E-Message; MD Batres Kendall Marie 02/25/2023 11:13 EST Electronic Signature on File Electronically Reviewed/Signed by: RAISA Lucero Author Signature Dt/Tm:03/03/2023 01:00 PM Division of Women's Health ML Note * MD Posey Serdar H: VERIFY, PERFORM Event Display: Report Authored Date: [id number] SERVICE(S) PROVIDED: Detailed Anatomy, 1 fetus [id number] INDICATIONS: 38 weeks gestation of Z3A.38 [facility] [place] IUGR Detailed anatomic survey Z[address] MAGISTRATE: Technique: N/A EVALUATION: Num Of Fetuses: 1 Heart Rate(bpm): 115 Cardiac Activity: Present Presentation: Cephalic Placenta: Anterior, no previa P. Cord Insertion: Eccentric, not marginal Amniotic Fluid STEFFEN FV: Within normal limits Largest Pocket(cm) 4.5 --------- BIOMETRY: --------- BPD: 87.4 mm G. Age: 35w 2d 4.3 % CI: 79.28 % 70 - 86 FL/HC: 21.6 % 20.6 - 23.4 HC: 310.3 mm G. Age: 34w 5d < 1 % HC/AC: 0.97 0.87 - 1.06 AC: 319.5 mm G. Age: 35w 6d 6 % FL/BPD: 76.7 % 71 - 87 FL: 67 mm G. Age: 34w 3d < 1 % FL/AC: 21.0 % 20 - 24 HUM: 57.1 mm G. Age: 33w 1d < 5 % NB: 12.7 mm 71 % Est. FW: 2647 gm 5 lb 13 oz 4.4 % GESTATIONAL AGE: Clinical MAYO: 38w 5d MAYO: 03/12/23 U/S Today: 35w 1d MAYO: 04/06/23 Best: 38w 5d Det. By: Clinical MAYO MAYO: 03/12/23 TARGETED ANATOMY: Central Nervous System Calvarium/Cranial V.: Appears WNL Cereb./Vermis: NOT well seen Intracranial Kay: Appears WNL Cisterna Magna: NOT well seen Cavum: NOT well seen Midline Falx: Appears WNL Parenchyma: Appears WNL 3rd Ventricle: NOT well seen Lateral Ventricles: Appears WNL 4th Ventricle: NOT well seen Choroid Plexus: Appears WNL Spine Cervical: Against uterine w Lumbar: Against uterine w Thoracic: Against uterine w Shape/Curvature: Appears WNL Head/Neck Face: NOT well seen Profile: Appears WNL Lips: NOT well seen Orbits/Eyes: Appears WNL Neck: NOT well seen Mandible: NOT well seen Nasal Bone: present Maxilla: NOT well seen Palate: NOT well seen Thorax Thoracic Contour: Appears WNL Ductal Arch: NOT well seen Lungs: Appear WNL SVC: NOT well seen 4 Chamber View: Appears WNL Interventr. Septum: Appears WNL Cardiac Activity: Appears WNL Cardiac Burtrum: Lt chest 45 degree Cardiac Rhythm: Appears WNL Diaphragm: Appears WNL Cardiac Situs: Appears WNL 3 Vessel View: Appears WNL Rt Outflow Tract: Appears WNL 3 V Trachea View: NOT well seen Lt Outflow Tract: Appears WNL IVC: NOT well seen Aortic Arch: Appears WNL Crossing: Appears WNL Abdomen Ventral Wall: NOT well seen Lt Kidney: Appears WNL Situs: Appears WNL Rt Kidney: Appears WNL Stomach: Normal, on left side Bladder: Appears WNL Liver: Appears WNL Bowel: Normal echogenicity Extremities Lt Humerus: Appears WNL Lt Femur: Appears WNL Rt Humerus: NOT well seen Rt Femur: Appears WNL Lt Forearm: WNL, 2 long bones Lt Lower Le bones, angle WNL Rt Forearm: WNL, 2 long bones Rt Lower Le bones noted Lt Hand: NOT well seen Lt Foot: Appears WNL Rt Hand: NOT well seen Rt Foot: Appears WNL Other Umbilical Cord: 3-vessel cord Genitalia: Appears WNL Masses: None visualized Comment: Renal arteries visualized. DOPPLER - VESSELS: Umbilical Artery S/D %tile RI PI PSV (cm/s) 2.7 78 0.63 1.06 52.7 CERVIX UTERUS ADNEXA: Cervix Poorly seen due to late gestational age IMPRESSION: Single live intrauterine with cardiac activity demonstrated. Viable fetus as described. FGR seen. FHR 115bpm. Normal amniotic fluid volume. Umbilical artery Doppler indices are in the normal range for this gestational age. Recommend NST to be done at [facility] after scan. Recommend delivery. I karolertexchristina Poe who is seeing pt at [facility]. Kelsey Posey MD Electronically Signed Final Report 03/03/2023 10:06 am Patient Care team information Care Team Personnel Name: MD Miles, Sonal Chisholm Position: Referring DIRECT Member Role: Primary Care Provider Address: Address: [address] [place] [address] [place] Care Team Related Persons Name: EVELIN RODRIGUEZ Address: home [address] [place], [place] [phone] Name: ZENOBIA RODRIGUEZ Address: home [address] [facility] [id number]
[2023-03-13] MEDS: IBUPROFEN 600 MG TAB PO PRN ×2 (02:38→08:30)
[2023-03-13] MEDS: LACTATED RINGER'S 1,000 ML IV SCH (06:19)
[2023-03-13] MEDS: MAGNESIUM SULFATE / WTR 40 GM/1,000 ML BAG IV SCH (06:19)
--- NOTE | 2023-03-13 07:31 | Obstetrical Progress Note ---
Date of Service March 13, 2023 Assessment & Plan (1) Pre-eclampsia, : Plan: 28 yo admitted w/ pp pre-eclampsia on mag VSS, BPs normotensive Plan to continue mag x 24 hours then stop and monitor bps Admission and Anticipated Discharge Date Admission Date: March 12, 2023 Subjective ENG improved a bit with ibuprofen. Denies s/s PET Physical Exam Respiratory: normal respiratory effort; no respiratory distress and no labored breathing Results & Data Vital Signs (Past 12 Hours) Vital Signs Temp Pulse Resp BP Pulse Ox 03/13/23 07:24 81 100 03/13/23 07:19 58 L 100 03/13/23 07:14 58 L 100 03/13/23 07:09 56 L 100 03/13/23 07:06 55 L 101/64 03/13/23 07:04 55 L 100 03/13/23 06:59 58 L 100 03/13/23 06:54 62 100 03/13/23 06:49 55 L 100 03/13/23 06:44 54 L 100 03/13/23 06:39 54 L 100 03/13/23 06:34 56 L 100 03/13/23 06:29 16 03/13/23 06:29 62 100 03/13/23 06:24 70 100 03/13/23 06:19 64 100 03/13/23 06:14 61 100 03/13/23 06:09 57 L 100 03/13/23 06:06 56 L 101/64 03/13/23 06:04 61 100 03/13/23 05:59 59 L 100 03/13/23 05:54 57 L 100 03/13/23 05:49 62 100 03/13/23 05:44 58 L 100 03/13/23 05:39 57 L 100 03/13/23 05:34 55 L 100 03/13/23 05:29 16 03/13/23 05:29 60 99 03/13/23 05:24 65 100 03/13/23 05:19 55 L 99 03/13/23 05:14 53 L 98 03/13/23 05:09 67 100 03/13/23 05:06 51 L 91/57 L 03/13/23 05:04 54 L 99 03/13/23 04:59 52 L 99 03/13/23 04:54 53 L 98 03/13/23 04:49 52 L 99 03/13/23 04:44 51 L 97 03/13/23 04:42 16 03/13/23 04:39 60 99 03/13/23 04:34 57 L 97 03/13/23 04:29 54 L 98 03/13/23 04:24 53 L 98 03/13/23 04:19 53 L 98 03/13/23 04:14 55 L 97 03/13/23 04:09 55 L 97 03/13/23 04:06 55 L 91/61 L 03/13/23 04:04 55 L 97 03/13/23 03:59 55 L 98 03/13/23 03:54 52 L 98 03/13/23 03:49 53 L 98 03/13/23 03:44 54 L 98 03/13/23 03:39 53 L 98 03/13/23 03:34 54 L 98 03/13/23 03:29 53 L 98 03/13/23 03:24 54 L 98 03/13/23 03:19 54 L 100 03/13/23 03:14 56 L 98 03/13/23 03:09 56 L 99 03/13/23 03:05 57 L 109/70 03/13/23 03:04 57 L 100 03/13/23 02:59 62 99 03/13/23 02:54 62 98 03/13/23 02:49 54 L 100 03/13/23 02:45 97.7 F 03/13/23 02:45 18 03/13/23 02:44 59 L 100 03/13/23 02:39 56 L 100 03/13/23 02:34 61 100 03/13/23 02:29 56 L 100 03/13/23 02:24 64 100 03/13/23 02:19 61 99 03/13/23 02:18 18 03/13/23 02:14 62 99 03/13/23 02:09 72 99 03/13/23 02:05 65 106/72 03/13/23 02:04 61 99 03/13/23 01:59 53 L 98 03/13/23 01:54 57 L 97 03/13/23 01:49 56 L 98 03/13/23 01:44 55 L 97 03/13/23 01:39 56 L 97 03/13/23 01:34 56 L 97 03/13/23 01:29 57 L 97 03/13/23 01:24 56 L 97 03/13/23 01:19 58 L 97 03/13/23 01:14 59 L 97 03/13/23 01:09 58 L 97 03/13/23 01:07 16 03/13/23 01:05 63 105/58 L 03/13/23 01:04 57 L 97 03/13/23 00:59 58 L 97 03/13/23 00:54 57 L 98 03/13/23 00:49 60 97 03/13/23 00:44 60 97 03/13/23 00:39 55 L 97 03/13/23 00:34 61 97 03/13/23 00:29 61 97 03/13/23 00:24 59 L 97 03/13/23 00:19 60 97 03/13/23 00:14 60 97 03/13/23 00:09 58 L 97 03/13/23 00:08 16 03/13/23 00:05 57 L 101/66 03/13/23 00:04 59 L 97 03/12/23 23:59 60 97 03/12/23 23:54 59 L 98 03/12/23 23:49 62 98 03/12/23 23:44 62 98 03/12/23 23:39 60 98 03/12/23 23:34 61 98 03/12/23 23:29 71 99 03/12/23 23:24 62 99 03/12/23 23:19 74 100 03/12/23 23:15 16 03/12/23 23:14 68 98 03/12/23 23:09 65 100 03/12/23 23:05 63 107/69 03/12/23 23:04 63 100 03/12/23 22:59 68 100 03/12/23 22:54 61 99 03/12/23 22:49 65 100 03/12/23 22:44 57 L 100 03/12/23 22:39 60 100 03/12/23 22:34 61 100 03/12/23 22:29 58 L 99 03/12/23 22:24 59 L 100 03/12/23 22:19 57 L 100 03/12/23 22:14 60 100 03/12/23 22:09 64 98 03/12/23 22:04 98 03/12/23 22:04 57 L 03/12/23 22:04 60 109/75 03/12/23 22:03 16 03/12/23 21:59 58 L 98 03/12/23 21:54 62 99 03/12/23 21:49 62 100 03/12/23 21:44 65 100 03/12/23 21:39 59 L 100 03/12/23 21:34 100 03/12/23 21:34 65 03/12/23 21:34 53 L 101/71 03/12/23 21:29 53 L 98 03/12/23 21:24 54 L 98 03/12/23 21:19 54 L 98 03/12/23 21:14 56 L 98 03/12/23 21:09 54 L 98 03/12/23 21:04 99 03/12/23 21:04 52 L 03/12/23 21:04 62 108/71 03/12/23 21:00 16 03/12/23 20:59 54 L 98 03/12/23 20:54 55 L 97 03/12/23 20:49 54 L 99 03/12/23 20:44 55 L 99 03/12/23 20:39 57 L 98 03/12/23 20:34 98 03/12/23 20:34 54 L 03/12/23 20:34 62 102/67 03/12/23 20:29 57 L 97 03/12/23 20:24 61 99 03/12/23 20:19 60 97 03/12/23 20:14 59 L 97 03/12/23 20:09 59 L 97 03/12/23 20:04 97 03/12/23 20:04 58 L 03/12/23 20:04 57 L 101/63 03/12/23 20:00 16 03/12/23 19:59 59 L 97 03/12/23 19:54 61 96 03/12/23 19:49 69 98 03/12/23 19:44 63 97 03/12/23 19:39 68 98 03/12/23 19:34 98 03/12/23 19:34 63 03/12/23 19:34 65 108/68 PG Care Time/CCT Total # of Minutes Spent Total Time Spent with Patient: Total time spent is greater than 50% in coordination of care (as documented) at patient's floor/unit and/or counseling patient: Coding Level of Care Code None Diagnoses Pre-eclampsia, O14.95
--- NOTE | 2023-03-16 15:33 | Discharge Summary ---
Date of Service March 16, 2023 Admission HPI Per Admitting Provider 28 yo approx 9d s/p and IOL for fgr c/b gestational HTN and hemorrhage requriing bimanual massage presented to ER due to known HTN and persistent ENG. Was dx w/ gHTN in labor and seen yesterday for BP check when it was 130/92 and asymptomatic. Last evening she began having ENG that did not resolve w/ tylenol or ibuprofen. She woke up this AM and noted it persisting. She contacted delivery provider and they recommended ER eval. In the ER, notes mild ENG but not as bad. Denies other s/s PET. BPs persistently severe range. Vaginal bleeding has been appropriate, minimal cramping Admission Exam (Per Admitting) Respiratory normal respiratory effort; no respiratory distress and no labored breathing Discharge Data Consultations 03/12/23 14:54 ED Decision to Admit Stat Hospital Course (1) Pre-eclampsia, : Pt was admitted and started on 24 hours of magnesium. She did not require additional BP meds after initial dose of labetalol in the ER. She was monitored after magnesium was discontinued and discharged home. Task was sent to make sure BP f/u Coding Level of Care Code None Diagnoses Pre-eclampsia, O14.95
== END 2023-03-14 08:05 | disposition home or self-care (01) | DRG 776 ==
LOC: ED 12:25 → 4S1 14:22 → 4E1 03-13 17:43
DX: K51.90 Ulcerative colitis, unspecified, without complications; O99.63 Diseases of the digestive system complicating the puerperium; Z79.899 Other long term (current) drug therapy; O99.285 Endocrine, nutritional and metabolic diseases complicating the puerperium; E03.9 Hypothyroidism, unspecified; Z79.890 Hormone replacement therapy; O14.15 Severe pre-eclampsia, complicating the puerperium